=== PATIENT | male | born 1945 | race Caucasian/White ===

== ENCOUNTER 2018-03-01 19:03 | Inpatient (IN) | payer OTHER ==
[2018-03-01] MEDS ORDERED: ALTEPLASE 100 MG/100 ML VIAL IV ONE (19:06)
[2018-03-01] MEDS ORDERED: NS 1,000 ML IV ONE (19:07)
--- NOTE | 2018-03-01 19:07 | EDPHY ---
H & P Time Seen by Provider: 03/01/18 19:06 HPI/ROS: CHIEF COMPLAINT: Aphasia HISTORY OF PRESENT ILLNESS: Patient is a 72-year-old man with a history of hypertension who is brought to the emergency department by EMS. According to paramedics at 4:52 p.m. He was talking with his on the phone when he suddenly had trouble speaking. She called the ambulance. They found him to have difficulty speaking but no other deficits. They brought him here and we called a stroke alert. REVIEW OF SYSTEMS: Unable to obtain secondary to condition EXAM: GENERAL: Alert, awake, hypertensive HEAD: Atraumatic, normocephalic. EYES: Pupils equal round and reactive to light, extraocular movements intact, sclera anicteric, conjunctiva are normal. ENT: TMs normal, nares patent, oropharynx clear without exudates. Moist mucous membranes. NECK: Normal range of motion, supple without lymphadenopathy or JVD. LUNGS: Breath sounds clear to auscultation bilaterally and equal. No wheezes rales or rhonchi. HEART: Regular rate and rhythm without murmurs, rubs or gallops. ABDOMEN: Soft, nontender, normoactive bowel sounds. No guarding, no rebound. No masses appreciated. BACK: No CVA tenderness, no spinal tenderness, step-offs or deformities EXTREMITIES: Normal range of motion, no pitting or edema. No clubbing or cyanosis. NEUROLOGICAL: Cranial nerves II through XII grossly intact. No slurred speech but trouble with word finding, aphasic, trouble naming objects., normal gait. 5 /5 strength, normal movement in all extremities, normal sensation NIH stroke score of 3 for aphasia and 4 trouble stating month and location. PSYCH: Normal mood, normal affect. SKIN: Warm, dry, normal turgor, no visible rashes or lesions. Source: Patient, EMS Exam Limitations: No limitations - Medical/Surgical History Hx Asthma: No Hx Chronic Respiratory Disease: No Hx Diabetes: No Hx Cardiac Disease: No Hx Renal Disease: No Hx Cirrhosis: No Hx Alcoholism: No Hx HIV/AIDS: No Other PMH: Thoracic aneurysm and AAA both repaired surgically, hypertension - Family History Significant Family History: No pertinent family hx - Social History Alcohol Use: Sober Drug Use: None Constitutional: Initial Vital Signs Heart Rate 82 03/01/18 19:12 Respiratory Rate 17 03/01/18 19:12 Blood Pressure 131/103 H 03/01/18 19:12 O2 Sat (%) 92 03/01/18 19:12 O2 Delivery Mode Nasal Cannula O2 (L/minute) 6 Allergies/Adverse Reactions: No Known Allergies Allergy (Unverified 03/01/18 19:21) Home Medications: Medication Instructions Recorded Atorvastatin Calcium 80 mg PO DAILY 03/01/18 Calcium Carbonate [Oyster Shell 500 mg PO DAILY 03/01/18 Calcium 500 mg (*)] Cholecalciferol Vit D3 [Vitamin D3 1,000 units PO DAILY 03/01/18 (*)] Furosemide [Lasix 20 MG (*)] 20 mg PO DAILY 03/01/18 LORazepam [Ativan (*)] 0.5 mg PO DAILY PRN 03/01/18 Losartan Potassium [Cozaar 25 mg 25 mg PO DAILY 03/01/18 (*)] Metoprolol Succinate Xr [Toprol Xl 100 mg PO DAILY 03/01/18 100 mg (*)] amLODIPine BESYLATE [Norvasc 5 mg 5 mg PO DAILY 03/01/18 (*)] oxyCODONE IR [Oxycodone Ir (*)] 5 mg PO Q6 PRN 03/01/18 Medical Decision Making - Diagnostics EKG Interpretation: An EKG obtained and was read and documented in trace view. Please see trace view for full reading and report. Sinus rhythm, no acute ischemic changes Imaging Results: Imaging Impressions Chest X-Ray 03/01/18 19:08 Impression: 1. Previous cardiac surgery. 2. Minimal right pleural effusion versus pleural scarring. 3. Patchy right lower lobe opacity representing pneumonitis, atelectasis, or pleuroparenchymal scarring. 4. Consider chest, two views, when the patient's medical condition permits. Head CT 03/01/18 19:08 Impression: 1. Left parietal acute intraparenchymal hemorrhage, 5 x 3.2 cm, with surrounding edema. Differential diagnosis includes hypertensive hemorrhage versus hemorrhagic infarct versus hemorrhagic metastasis. 2. No midline shift or herniation. 3. Recommend follow-up MRI brain, without and with contrast enhancement, when the patient's medical condition permits. Findings and recommendations discussed with Emergency Department physician, Israel Reilly M.D., at 1912 hours, on March 01, 2018. Final report concurs with initial preliminary interpretation. ED Course/Re-evaluation: I spoke initially with Dr. Cleo Rubio from [facility]. We then canceled after the noncontrast CT was obtained. The patient thinks he is on a blood thinner but cannot tell me the name because he cannot talk. and daughter arrived and do not know. [facility] 7:30 p.m. I discussed the case with Dr. Marino Boland who recommends admission to the hospital service. He states that this is likely nonsurgical. He will come and consult. He agrees with nicardipine drip. We are still trying to track down blood thinners. [facility] said that [facility] do not think he is on blood thinners. Patient now tells me he does not think he is on blood thinners. We will try and contact the pharmacy. His coags are normal. 7:50 p.m. I discussed the case with Dr. Milligan who will admit to the ICU. He will consult Neurology tomorrow. We had a friend go to the patient's house and check his medication list. He is not on any blood thinners. Differential Diagnosis: Partial list of the Differential diagnosis considered include but were not limited to; intracranial hemorrhage, CVA and although unlikely based on the history and physical exam, I also considered seizure, trauma, infection. Critical Care Time: Critical care time spent by me, Dr. Reilly exclusive with this patient was 45 minutes, exclusive of the PA time exclusive of procedures. The organ system that was at risk was neurologic and I gave diagnosis, treatment consultation and admission to prevent worsening of the patient's condition - Data Points Laboratory Results: Laboratory Results 03/01/18 19:07 03/01/18 19:07 03/01/18 03/01/18 03/01/18 19:09 19:07 19:07 WBC RBC Hgb POC Hgb 19.7 gm/dL H gm/dL (13.7-17.5) Hct POC Hct 58 % H % (40-51) MCV MCH MCHC RDW Plt Count MPV Neut % (Auto) Lymph % (Auto) [place] % (Auto) Eos % (Auto) Baso % (Auto) Nucleat RBC Rel Count Absolute Neuts (auto) Absolute Lymphs (auto) Absolute Monos (auto) Absolute Eos (auto) Absolute Basos (auto) Absolute Nucleated RBC Immature Gran % Immature Gran # PT INR APTT POC Sodium 144 mEq/L mEq/L (135-145) Sodium Pending 142 mEq/L mEq/L (135-145) POC Potassium 4.1 mEq/L mEq/L (3.3-5.0) Potassium Pending 4.7 mEq/L mEq/L (3.5-5.2) POC Chloride 103 mEq/L mEq/L (97-110) Chloride Pending 101 mEq/L mEq/L (97-110) Carbon Dioxide Pending 27 mEq/l mEq/l (22-31) Anion Gap Pending 14 mEq/L mEq/L (8-16) POC BUN 15 mg/dL mg/dL (7-23) BUN Pending 15 mg/dL mg/dL (7-23) Creatinine Pending 1.0 mg/dL mg/dL (0.7-1.3) POC Creatinine 1.0 mg/dL mg/dL (0.7-1.3) Estimated GFR Pending > 60 Glucose Pending 103 mg/dL H mg/dL (70-100) POC Glucose 110 mg/dL H mg/dL (70-100) Calcium Pending 9.3 mg/dL mg/dL (8.5-10.4) Troponin I 0.111 ng/mL H ng/mL (0.000-0.034) 03/01/18 03/01/18 19:07 19:07 WBC 7.75 10^3/uL 10^3/uL (3.80-9.50) RBC 6.00 10^6/uL 10^6/uL (4.40-6.38) Hgb 18.0 g/dL H g/dL (13.7-17.5) POC Hgb Hct 54.9 % H % (40.0-51.0) POC Hct MCV 91.5 fL fL (81.5-99.8) MCH 30.0 pg pg (27.9-34.1) MCHC 32.8 g/dL g/dL (32.4-36.7) RDW 13.9 % % (11.5-15.2) Plt Count 163 10^3/uL 10^3/uL (150-400) MPV 10.2 fL fL (8.7-11.7) Neut % (Auto) 58.2 % % (39.3-74.2) Lymph % (Auto) 30.2 % % (15.0-45.0) [place] % (Auto) 10.6 % % (4.5-13.0) Eos % (Auto) 0.4 % L % (0.6-7.6) Baso % (Auto) 0.5 % % (0.3-1.7) Nucleat RBC Rel Count 0.0 % % (0.0-0.2) Absolute Neuts (auto) 4.51 10^3/uL 10^3/uL (1.70-6.50) Absolute Lymphs (auto) 2.34 10^3/uL 10^3/uL (1.00-3.00) Absolute Monos (auto) 0.82 10^3/uL H 10^3/uL (0.30-0.80) Absolute Eos (auto) 0.03 10^3/uL 10^3/uL (0.03-0.40) Absolute Basos (auto) 0.04 10^3/uL 10^3/uL (0.02-0.10) Absolute Nucleated RBC 0.00 10^3/uL 10^3/uL (0-0.01) Immature Gran % 0.1 % % (0.0-1.1) Immature Gran # 0.01 10^3/uL 10^3/uL (0.00-0.10) PT 13.9 SEC SEC (12.0-15.0) INR 1.05 (0.83-1.16) APTT 24.2 SEC SEC (23.0-38.0) POC Sodium Sodium POC Potassium Potassium POC Chloride Chloride Carbon Dioxide Anion Gap POC BUN BUN Creatinine POC Creatinine Estimated GFR Glucose POC Glucose Calcium Troponin I Medications Given: Acetaminophen (Tylenol) 650 mg PO Q4HRS PRN PRN Reason: Pain, Mild/Fever, Can Take PO Stop: 08/28/18 20:04 Last Admin: 03/01/18 22:01 Dose: 650 mg Nicardipine/Sodium Chloride (Cardene 0.1 Mg/Ml (Premix)) 200 mls @ 0 mls/hr IV CONT LOIDA; Titrate PRN Reason: Protocol Stop: 08/28/18 19:29 Last Admin: 03/01/18 19:36 Dose: 200 mls Lorazepam (Ativan Injection) 0.5 - 1 mg IVP Q4HRS PRN PRN Reason: Anxiety, Unable to Take PO Stop: 08/28/18 20:28 Last Admin: 03/01/18 22:01 Dose: 1 mg Miscellaneous (Liz-Ease 2 Gm) 2 tatiana TP Q1HR PRN PRN Reason: Dry Nose Stop: 08/28/18 21:00 Last Admin: 03/01/18 22:02 Dose: 2 tatiana Discontinued Medications Sodium Chloride (Ns) 1,000 mls @ 500 mls/hr IV EDNOW ONE PRN Reason: Protocol Stop: 03/01/18 21:06 Last Admin: 03/01/18 19:21 Dose: 1,000 mls Point of Care Test Results: 03/01/18 19:09 POC Sodium 144 POC Potassium 4.1 POC Chloride 103 POC BUN 15 POC Creatinine 1.0 POC Glucose 110 H Departure - Departure Disposition: [facility] Acute Clinical Impression: Intracranial hemorrhage Condition: Critical
[2018-03-01 19:18] LABS: PLATELET COUNT 163 10^3/uL (150-400)
--- NOTE | 2018-03-01 19:20 | CPEKG ---
Heart Rate: 79 RR Interval: 759 P-R Interval: 192 QRSD Interval: 84 QT Interval: 396 QTC Interval: 455 P [place]: 87 QRS [place]: 65 T Wave [place]: 7 EKG Severity - ABNORMAL ECG - EKG Impression: SINUS RHYTHM EKG Impression: LEFT ATRIAL ABNORMALITY Electronically Signed By: Israel Reilly 01-Mar-2018 19:40:45
[2018-03-01 19:28] LABS: INR 1.05 (0.83-1.16); PROTIME(PATIENT) 13.9 SEC (12.0-15.0)
[2018-03-01] MEDS ORDERED: niCARdipine/NACL 200 ML IV SCH ×2 (19:30→20:30)
[2018-03-01] MEDS ORDERED: ACETAMINOPHEN 650 MG SUPP PR PRN (20:05)
[2018-03-01] MEDS ORDERED: ONDANSETRON 4 MG/2 ML VIAL IVP PRN (20:05)
[2018-03-01] MEDS ORDERED: D50W 25 GM/50 ML SYR IVP PRN (20:08)
--- NOTE | 2018-03-01 20:56 | PDGENHP ---
History and Physical - Chief Complaint aphasia - History of Present Illness The Patient is a 72-year-old man who typically [facility] who has a history of hypertension, chronic resp failure on 6L O2 baseline, COPD, who is brought to the ED due to Aphasia.. According to paramedics at 4:52 p.m. He was talking with his on the phone when he suddenly had trouble speaking. She called the ambulance. They found him to have difficulty speaking but no other deficits. In the E.D. CT Brain is c/w Hemorrhagic stroke. Neuro Surgery has been consulted. He is seen in the ICU. BP is appropriate in the 150's systolic. He is on a Nicardipine drip. Aphasia persists but improving. He has difficulty following commands. He is able to move all 4 extremities. There was some concern that the pt was on blood thinners but upon further questioning he does not appear to take any. Coags are unremarkable. [facility]. He has a hx of COPD and chronic resp failure and he is currently at baseline. Per hx, he apparently was his normal self prior to this event. He has hx of HTN and is on a number of agents. Unclear what his BP runs usually. ROS: limited due to his cognition. He Denies pain, cp, sob, n/v. PMHx: HTN AAA Thoracic AA COPD chronic resp failure PSHx: AAA and throracic AAA repair SocHx: previous tobacco, no ETOH, lives with FmHx: NC CT Brain: left parietal intraparenchymal Hemorrhage involving the left parietal lobe measuring 5x3.2 cm. no midline shift EKG: with no acute ischemia Trop: 0.111 History Information - Allergies/Home Medication List Allergies/Adverse Reactions: No Known Allergies Allergy (Unverified 03/01/18 19:21) Home Medications: Atorvastatin Calcium 80 mg PO DAILY 03/01/18 [Last Taken 02/28/18] Calcium Carbonate [Oyster Shell Calcium 500 mg (*)] 500 mg PO DAILY 03/01/18 [ Last Taken 02/28/18] Cholecalciferol Vit D3 [Vitamin D3 (*)] 1,000 units PO DAILY 03/01/18 [Last Taken 02/28/18] Furosemide [Lasix 20 MG (*)] 20 mg PO DAILY 03/01/18 [Last Taken 02/28/18] LORazepam [Ativan (*)] 0.5 mg PO DAILY PRN 03/01/18 [Last Taken Unknown] Losartan Potassium [Cozaar 25 mg (*)] 25 mg PO DAILY 03/01/18 [Last Taken ] Metoprolol Succinate Xr [Toprol Xl 100 mg (*)] 100 mg PO DAILY 03/01/18 [Last Taken 02/28/18] amLODIPine BESYLATE [Norvasc 5 mg (*)] 5 mg PO DAILY 03/01/18 [Last Taken ] oxyCODONE IR [Oxycodone Ir (*)] 5 mg PO Q6 PRN 03/01/18 [Last Taken Unknown] I have personally reviewed and updated: medical history, social history - Social History Alcohol Use: Sober Drug Use: None Review of Systems Review of Systems: ROS: 10pt was reviewed & negative except for what was stated in HPI & below Physical Exam Physical Exam: Temp Pulse Resp BP Pulse Ox 36.9 C 85 19 129/76 H 93 03/01/18 19:27 03/01/18 20:35 03/01/18 20:35 03/01/18 20:35 03/01/18 20:35 O2 (L/minute) 6 Constitutional: no apparent distress, not in pain Eyes: PERRL, EOMI Ears, Nose, Mouth, Throat: moist mucous membranes, hearing normal Cardiovascular: regular rate and rhythym, No edema Respiratory: reduced air movement, expiratory wheeze Gastrointestinal: normoactive bowel sounds, soft, non-tender abdomen Skin: warm Neurologic: other (difficulty with following commands. limited exam: CNII-XII grossly intact. ), No AAOx3 Psychiatric: encephalopathic, No interacting appropriately Lymph, Heme, Immunologic: No petechiae Lab Data & Imaging Review 03/01/18 19:07 03/01/18 19:07 WBC 7.75 10^3/uL (3.80-9.50) 03/01/18 19:07 RBC 6.00 10^6/uL (4.40-6.38) 03/01/18 19:07 Hgb 18.0 g/dL (13.7-17.5) H 03/01/18 19:07 POC Hgb 19.7 gm/dL (13.7-17.5) H 03/01/18 19:09 Hct 54.9 % (40.0-51.0) H 03/01/18 19:07 POC Hct 58 % (40-51) H 03/01/18 19:09 MCV 91.5 fL (81.5-99.8) 03/01/18 19:07 MCH 30.0 pg (27.9-34.1) 03/01/18 19:07 MCHC 32.8 g/dL (32.4-36.7) 03/01/18 19:07 RDW 13.9 % (11.5-15.2) 03/01/18 19:07 Plt Count 163 10^3/uL (150-400) 03/01/18 19:07 MPV 10.2 fL (8.7-11.7) 03/01/18 19:07 Neut % (Auto) 58.2 % (39.3-74.2) 03/01/18 19:07 Lymph % (Auto) 30.2 % (15.0-45.0) 03/01/18 19:07 [place] % (Auto) 10.6 % (4.5-13.0) 03/01/18 19:07 Eos % (Auto) 0.4 % (0.6-7.6) L 03/01/18 19:07 Baso % (Auto) 0.5 % (0.3-1.7) 03/01/18 19:07 Nucleat RBC Rel Count 0.0 % (0.0-0.2) 03/01/18 19:07 Absolute Neuts (auto) 4.51 10^3/uL (1.70-6.50) 03/01/18 19:07 Absolute Lymphs (auto) 2.34 10^3/uL (1.00-3.00) 03/01/18 19:07 Absolute Monos (auto) 0.82 10^3/uL (0.30-0.80) H 03/01/18 19:07 Absolute Eos (auto) 0.03 10^3/uL (0.03-0.40) 03/01/18 19:07 Absolute Basos (auto) 0.04 10^3/uL (0.02-0.10) 03/01/18 19:07 Absolute Nucleated RBC 0.00 10^3/uL (0-0.01) 03/01/18 19:07 Immature Gran % 0.1 % (0.0-1.1) 03/01/18 19:07 Immature Gran # 0.01 10^3/uL (0.00-0.10) 03/01/18 19:07 PT 13.9 SEC (12.0-15.0) 03/01/18 19:07 INR 1.05 (0.83-1.16) 03/01/18 19:07 APTT 24.2 SEC (23.0-38.0) 03/01/18 19:07 POC Sodium 144 mEq/L (135-145) 03/01/18 19:09 Sodium 142 mEq/L (135-145) 03/01/18 19:07 POC Potassium 4.1 mEq/L (3.3-5.0) 03/01/18 19:09 Potassium 4.7 mEq/L (3.5-5.2) 03/01/18 19:07 POC Chloride 103 mEq/L (97-110) 03/01/18 19:09 Chloride 101 mEq/L (97-110) 03/01/18 19:07 Carbon Dioxide 27 mEq/l (22-31) 03/01/18 19:07 Anion Gap 14 mEq/L (8-16) 03/01/18 19:07 POC BUN 15 mg/dL (7-23) 03/01/18 19:09 BUN 15 mg/dL (7-23) 03/01/18 19:07 Creatinine 1.0 mg/dL (0.7-1.3) 03/01/18 19:07 POC Creatinine 1.0 mg/dL (0.7-1.3) 03/01/18 19:09 Estimated GFR > 60 03/01/18 19:07 Glucose 103 mg/dL (70-100) H 03/01/18 19:07 POC Glucose 110 mg/dL (70-100) H 03/01/18 19:09 Calcium 9.3 mg/dL (8.5-10.4) 03/01/18 19:07 Troponin I 0.111 ng/mL (0.000-0.034) H 03/01/18 19:07 Assessment & Plan Assessment: #Intracranial hemorrhage (Acute) #HTN #Indeterminate troponin, do not suspect ACS, no chest pain, EKG with no ischemia #Acute Encephalopathy due to stroke #Aphasia #HLD #COPD not in exacerbation #chronic resp failure at baseline 6 L Plan: ICU NS to see, conservative mgmt if possible repeat imaging per NS Seizure proph if needed per NS BP mgmt with Nicardipine Drip serial trops, telemetry, check TTE NPO, awaiting bedside swallow bronchodilators as needed hold home bp meds for now PT/OT/Speech total critical care time spent on this patient with hemorrhagic stroke, aphasia , and HTN is 70 minutes. D/W ER Physician, D/W ICU nurse
[2018-03-01] MEDS ORDERED: CANN-EASE 2 GM TUBE TP PRN (21:01)
[2018-03-01] MEDS ORDERED: IPRATROPIUM/ALBUTEROL 3 ML DEYVIAL IH PRN (21:02)
[2018-03-01] MEDS: LORazepam 2 MG/ML INJ IVP PRN (22:01)
[2018-03-01] MEDS: ACETAMINOPHEN 325 MG TAB PO PRN (22:01)
--- NOTE | 2018-03-01 22:23 | GCON ---
[f rep st] CONSULTATION DATE OF CONSULTATION: 03/01/2018 REFERRING PHYSICIAN: Israel Reilly MD REASON FOR CONSULT: Left temporoparietal hemorrhage. HISTORY OF PRESENT ILLNESS: The patient is a pleasant 72-year-old male who typically has all of his care at [place] [facility]. He does have a history of hypertension and COPD who is on 6 L of o xygen at baseline. He was brought to the emergency room this evening due to speech aphasia. Susan ng to the paramedics who brought him in, at approximately 4:50 this afternoon, he was talking with hi s on the phone and he suddenly had trouble speaking. She called the ambulance and they brought him into the emergency department. A CAT scan of his brain demonstrated an approximately 4 cm wide acute hemorrhage in the parenchyma of his brain in the left posterior temporoparietal region. His blood pressure was 150 systolic. Upon my arrival, he had been moved to the ICU where he was at the edge of the bed, wide awake and abl e to give some history but with difficulties with speech. His family was at the bedside and able to provide the rest of the history. PAST MEDICAL AND SURGICAL HISTORY: Per HPI, hypertension, triple aortic aneurysm with repair in the past. CODE STATUS: Full. ALLERGIES: No known drug allergies. SOCIAL HISTORY: Tobacco user. Denies alcohol or drug abuse. Lives with his , daughter at the [facility]. FAMILY HISTORY: No known history of hemorrhagic stroke in the family. REVIEW OF SYSTEMS: Ten points reviewed and otherwise negative. PHYSICAL EXAMINATION: VITAL SIGNS: The patient is afebrile with temperature of 98.6 degrees, his bl ood pressure is 129/76; it was 163/101 on arrival and he was placed on a nicardipine drip. Heart rat e is 85, respiratory rate is 19, saturating 93% on 6 L nasal cannula. NEUROLOGIC: The patient is aw adebayo and alert. He has significant mixed aphasia with the inability to understand all of commands giv en to him and a substantial expressive aphasia without the ability to communicate very well. He has normal cranial nerves. He is 5/5 in all extremities. He does not have a pronator drift. He has nor mal sensory exam to light touch and pinprick. He does not have a Morrell's, clonus, or Babinski sign . He has normal deep tendon reflexes. He does not have any cerebral findings. His gait is deferred , but he has good truncal posture and is sitting at the edge of the bed and trying to interact with kalina e on my examination. LABORATORY DATA: White blood cell count 7.7, hemoglobin 18, platelet count 163. INR 1.05, PTT 24.2. Sodium 142, potassium 4.7, BUN 15, creatinine 1.0, glucose 103. Troponin is 0.111 which is slightl y elevated. Review of imaging: I have reviewed the patient's noncontrast head CT and agree that he has a well-ci rcumscribed, approximately 3-4 cm intraparenchymal hemorrhage at the cortical surface in the left pos terior temporoparietal region. There is not a significant amount of vasogenic edema. There is no lo poornima mass effect or midline shift. IMPRESSION AND PLAN: The patient is a 72-year-old male, not on any anticoagulation, with hypertensio n and chronic obstructive pulmonary disease, who had an acute onset episode of aphasia this evening w martina talking on the telephone to his . He has a relatively good neurologic exam currently with t he exception of some mixed aphasia but he is wide awake and alert. The etiology of his hemorrhage at this point in time is unclear. It is possibly hypertensive versus some kind of amyloid process versus some kind of underlying mass lesion such as a tumor or a cerebrov ascular malformation. At this point in time, I recommend a CT angiogram of his brain at his next scan time which would be 4 -6 hours after his initial scan. We will also likely obtain an MRI brain with and without contrast a t some point in time. I recommend tight blood pressure control, less than 140 systolic with a nicard ipine drip, and frequent neurologic checks in the ICU. At this point in time, his bleed is not surgi poornima and surgery, in fact, could make him worse. It would disrupt some of his functional speech cente rs trying to evacuate the hemorrhage. I discussed my findings and recommendations personally with the patient and his family at the bedside . We are following closely along. Please call us with any questions. Thank you for this consult. /[id number]/MODL
--- NOTE | 2018-03-01 22:33 | PDMN ---
Medical Necessity Medical necessity: C/M review: est. > 2 MN LOS for eala and TX of acute intracranial hemorrhage, hypertension, hemorrhagic stroke, aphasia, acute encephalopathy due to stroke, indeterminate troponin requiring planned Neurosurgery consult, echocardiogram, ongoing NPO, blood pressure management with IV Nicardipine infusion, cardiac monitoring, serial troponins, bronchodilators as needed, pulse oximetry, supplemental O2, acute inpt PT/OT/ST in ICU, comorbid hyperlipidemia, COPD not in exacerbation, chronic respiratory failure at 6L/ min. O2 baseline history of hypertension, abdominal aortic aneurysm repair, thoracic aortic aneurysm repair per H/P.
[2018-03-02 05:04] LABS: PLATELET COUNT 129 10^3/uL (150-400)
[2018-03-02] MEDS ORDERED: PROTOCOL POTASSIUM 1 DOSE MISC PRN (06:13)
[2018-03-02] MEDS ORDERED: PROTOCOL CALCIUM 1 DOSE IV PRN (06:14)
[2018-03-02] MEDS ORDERED: PROTOCOL MAGNESIUM 1 DOSE IV PRN (06:14)
--- NOTE | 2018-03-02 07:22 | SOAPPROG ---
SOAP Progress Note Assessment/Plan: Assessment: 72 yo M with left parietal ICH Plan: neuro: stable and doing a bit better overall continued mixed receptive and expressive dysphasia will check CTA brain to evaluate for underlying vascular malformation, if negative, then we will also get MRI brain PT/OT/ST ok to transfer to Step Down cardine to keep SBP < 140 mmhg please call with neuro changes discussed with Dr Ford 03/02/18 07:19 Subjective: mild headache this am, no N/V. continued speech issues Objective: Vital Signs Temp Pulse Resp BP Pulse Ox 36.9 C 90 17 112/68 96 03/01/18 21:00 03/02/18 06:00 03/02/18 06:00 03/02/18 06:00 03/02/18 06:00 Laboratory Results 03/02/18 04:43 03/02/18 04:43 03/01/18 03/02/18 03/03/18 05:59 05:59 05:59 Intake Total 450 Output Total 0 Balance 450 PT 13.9 SEC (12.0-15.0) 03/01/18 19:07 INR 1.05 (0.83-1.16) 03/01/18 19:07 Awake, alert, +FC mixed receptive and expressive dysphasia PERRL, EOMI NEDA x4 + light touch ICD10 Worksheet Patient Problems: Problems Problem Status Onset Intracranial hemorrhage Acute
[2018-03-02] MEDS: INSULIN LISPRO 100 UNIT/ML SC SCH ×3 (07:31→20:09)
[2018-03-02] MEDS ORDERED: IOPAMIDOL (ISOVUE 370) 100 ML BTL IV ONE (08:34)
[2018-03-02] MEDS ORDERED: LORazepam 0.5 MG TAB PO PRN (09:31)
[2018-03-02] MEDS: oxyCODONE IR 5 MG TAB PO PRN ×2 (09:59→14:32)
[2018-03-02] MEDS: CALCIUM CARBONATE 500 MG TAB PO SCH (09:59)
[2018-03-02] MEDS: FUROSEMIDE 20 MG TAB PO SCH (09:59)
[2018-03-02] MEDS: CHOLECALCIFEROL VIT D3 1,000 UNITS TAB PO SCH (09:59)
[2018-03-02] MEDS: amLODIPine BESYLATE 5 MG TAB PO SCH (09:59)
[2018-03-02] MEDS: ATORVASTATIN CALCIUM 40 MG TAB PO SCH (10:00)
[2018-03-02] MEDS: METOPROLOL SUCCINATE XR 100 MG TAB PO SCH (10:02)
[2018-03-02] MEDS: LOSARTAN POTASSIUM 25 MG TAB PO SCH (10:04)
[2018-03-02] MEDS ORDERED: POTASSIUM CL 10 MEQ TAB PO ONE (11:36)
--- NOTE | 2018-03-02 11:50 | GCON ---
[f rep st] CONSULTATION DATE OF CONSULTATION: 03/02/2018 HISTORY OF PRESENT ILLNESS: This patient is a 72-year-old male normally followed [facility], who pres ented with abnormalities in speech to the emergency department late yesterday. His blood pressure wa s 131/[address] scan showed a left parietal 5 x 3 hemorrhagic stroke. He was seen by Neurosurgery and conservative management was recommended, and he was admitted to the intensive care unit [facility]. Symptoms are essentially unchanged today according to his daughter, but a repeat head CT also giovana wed no change in the hemorrhage. He also has a history of COPD and was unable to provide a lot of de tails today, but apparently uses oxygen at night only. [place] [address] and his oxygen requ irements may be higher than that. In any case, he says he is not using inhalers, but she thought that he was using something daily as well as a rescue type inhaler. Records from the [facility] are pending at th is time. REVIEW OF SYSTEMS: Otherwise negative. PAST MEDICAL HISTORY: 1. Hypertension. 2. Thoracic aortic aneurysm as well as abdominal aortic aneurysm. 3. Nocturnal oxygen and chronic obstructive pulmonary disease. PAST SURGICAL HISTORY: The aneurysm repairs. SOCIAL HISTORY: He has a history of smoking, but was unsure when he quit. No alcohol or IV drug use . FAMILY HISTORY: Noncontributory at this time. MEDICATIONS: DuoNeb, Norvasc, Lipitor, vitamin D, Lasix, Humalog, Ativan p.r.n., Cozaar, metoprolol, Zofran. PHYSICAL EXAMINATION: VITAL SIGNS: He was afebrile. His blood pressure was 147/84, heart rate 90, r espirations 17, oxygen saturation was about 85% on room air and 93% on 1 L/minute. GENERAL: He was a wake and alert, no apparent distress. Able to speak in full sentences without using accessory muscle s for breathing, though he was having difficulty with word finding. HEENT: Pupils equally round and reactive to light. Nonicteric and noninjected. Mucous membranes moist without erythema or exudate. NECK: Supple without adenopathy or jugular vein distention. LUNGS: Breath sounds were clear to aus cultate bilaterally though diminished without wheezes, rubs or rales. CARDIAC: Heart had a regular ra te and rhythm without obvious murmur. ABDOMEN: Soft, nontender, nondistended without hepatosplenome lucia. EXTREMITIES: No clubbing, cyanosis, or edema. NEUROLOGIC: Exam seemed to be nonfocal, other than the expressive aphasia. SKIN: Warm and dry without evidence of rash. OBJECTIVE DATA: CT scan as described above. His white count is 5.5, hematocrit 42, platelets of 129 , down from 163. Coags were otherwise normal. Basic metabolic panel showed a potassium of 3.2 but w as otherwise normal. Troponin was 0.11, but now 0.062 without intervention. ASSESSMENT AND PLAN: 1. Hemorrhagic stroke for uncertain reasons. Neurosurgery is following closely, keeping his blood p ressure under control and monitoring him to maintain that. He is going to a swallow study as well as PT, OT for further evaluation. 2. Chronic obstructive pulmonary disease. Though it is unclear about his medications, I am going to start him on Spiriva today as well as albuterol to use p.r.n. His oxygen requirement is quite low at this point. I suspected at [address], it is higher than that, but we will have to figure that out at the time of discharge. /[id number]/MODL
--- NOTE | 2018-03-02 12:24 | ECHO ---
[email or web address] [address] [address] Main: [phone] Fax: Transthoracic Echocardiogram Name: WALT MAYO MR#: [id number] Study Date: 03/02/2018 Study Time: 09:53 AM Date of : 1945 Age: 72 year(s) Height: 185.4 cm (73 in.) Weight: 81.65 kg (180 lb.) BSA: 2.06 m2 Gender: Male Examination: Echo Indication: Indeterminate Troponin, Aortic Valve Regurgitation, Intercranial Hemorrhage, COPD Image Quality: Poor Contrast: Requested by: Kj Moreira BP: 147 mmHg/84 mmHg Heart Rate: Rhythm: Normal sinus rhythm Indication: Indeterminate Troponin, Aortic Valve Regurgitation, Intercranial Hemorrhage, COPD Procedure Staff Steamer Blocker: Tristin Rucker RDCS Reading Physician: Quirino Tsang MD Requesting Provider: Conclusions: Normal size left ventricle. No LV hypertrophy. Normal global systolic LV function. EF is 88 %. No regional wall motion abnormality. Diastolic dysfunction is present. . Normal RV function. The left atrium is normal in size. The right atrium is normal in size. Aortic valve prosthesis is normal. There is no aortic valve regurgitation. The AV mean PG is 5 mmHg with a AV Vmax of 1.4 m/s. No pericardial effusion. Measurements: Chambers Valvular Assessment AV/MV Valvular Assessment TV/PV Normal Normal Normal Name Value Range Name Value Range Name Value Range Ao Leah (MM): 3.0 cm (2.2 cm-3.7 AV Vmax: 1.45 m/s (1 m/s-1.7 PV Vmax: 1.26 m/s (0.6 m/s-0.9 cm) m/s) m/s) IVSd (2D): 0.8 cm (0.6 cm-1.1 AV maxP mmHg ( - ) PV PGmax: 6 mmHg ( - ) cm) AV meanP mmHg ( - ) LVDd (2D): 5.0 cm (4.2 cm-5.9 MARIELA (VTI): 2.2 cm ( - ) cm) MV E Vmax: 0.52 m/s ( - ) LVDs (2D): 2.1 cm (2.1 cm-4 MV A Vmax: 0.70 m/s ( - ) cm) MV E/A: 0.74 ( - ) LVPWd (2D): 0.9 cm (0.6 cm-1 cm) LVOTd 2.2 cm 2.2 cm mm LVEF (2D): 88 (>=54 %) Patient: WALT MAYO Study Date: 03/02/2018 Page 1 of 2 09:53 AM Continued Measurements: Chambers Valvular Assessment AV/MV Name Value Name Value LADs Lon.5 cm MV E' Septal: 0.05 m/s LA Area: 20.8 cm2 MV E/E' Septal: 11.60 LA Volume: 64 ml MV E/E' Lateral: 9.80 LA Volume Index: 31.1 ml/m2 Findings: Left Ventricle: Normal size left ventricle. No LV hypertrophy. Normal global systolic LV function. EF is 88 %. No regional wall motion abnormality. Diastolic dysfunction is present. . Right Ventricle: Normal size right ventricle. Normal RV function. Left Atrium: The left atrium is normal in size. Right Atrium: The right atrium is normal in size. Mitral Valve: Mild mitral valve leaflet calcification is present. There is no significant mitral valve regurgitation. Aortic Valve: Aortic valve prosthesis is normal. There is no aortic valve regurgitation. The aortic valve is a bioprosthesis. The AV mean PG is 5 mmHg with a AV Vmax of 1.4 m/s. Tricuspid Valve: The tricuspid valve is normal in appearance and function. Pulmonic Valve: The pulmonic valve is normal in appearance and function. Aorta: The aorta is normal. Pericardium: No pericardial effusion. (No Signature Object) Patient: WALT MAYO Study Date: 03/02/2018 Page 2 of 2 09:53 AM [id number]
--- NOTE | 2018-03-02 13:08 | HOSPPROG ---
Hospitalist Progress Note Assessment/Plan: 72-year-old male new to my care on 03/02/2018 presenting with word-finding difficulties found to have: #Intracranial hemorrhage (Acute) -bleed appears stable on imaging. CT angio of the head was reviewed and did not show a source of bleeding. -continue PT/OT #HTN -continue to closely monitor blood pressure and treat with IV Cardene for a goal of systolic less than 140 #Indeterminate troponin, do not suspect ACS, no chest pain, EKG with no ischemia -recommend outpatient stress test #Acute Encephalopathy due to stroke(resolving) #Aphasia #HLD #COPD not in exacerbation #chronic resp failure at baseline 6 L Disposition: Continue care in the step-down unit until blood pressure is stabilized and cleared by Neurosurgery for transfer to the neuro unit Subjective: Denies any new numbness or weakness. Speech is improving. Denies chest pain. Objective: Vital Signs Temp Pulse Resp BP Pulse Ox 36.9 C 71 22 H 134/91 H 93 03/01/18 21:00 03/02/18 12:00 03/02/18 12:00 03/02/18 12:00 03/02/18 12:00 Laboratory Results 03/02/18 04:43 03/02/18 04:43 03/01/18 03/02/18 03/03/18 05:59 05:59 05:59 Intake Total 450 Output Total 0 200 Balance 450 -200 PT 13.9 SEC (12.0-15.0) 03/01/18 19:07 INR 1.05 (0.83-1.16) 03/01/18 19:07 - Physical Exam Constitutional: no apparent distress, appears nourished, not in pain Cardiovascular: regular rate and rhythym, no murmur, rub, or gallop Respiratory: no respiratory distress, no rales or rhonchi, clear to auscultation Gastrointestinal: normoactive bowel sounds, soft, non-tender abdomen, no palpable masses Neurologic: AAOx3, sensation intact bilaterally ICD10 Worksheet Patient Problems: Problems Problem Status Onset Intracranial hemorrhage Acute
[2018-03-02] MEDS: LORazepam 2 MG/ML INJ IVP PRN (13:19)
[2018-03-02] MEDS ORDERED: GADOBUTROL 10 ML VIAL IVP ONE (13:39)
--- NOTE | 2018-03-02 15:31 | ASMTCMCOM ---
CM Note CM Note Notes: Pt has been admitted with a L parietal intracranial hemorrhage. PT/OT recommending Inpt Rehab at this time. Need order for rehab eval. Pt lives with his in [place] [facility] CM will follow for d/c needs. Date Signed: 03/02/2018 03:30 PM Electronically Signed By:ABIGAIL Murphy
[2018-03-02] MEDS ORDERED: NS 1,000 ML IV ONE (19:00)
[2018-03-02] MEDS: ACETAMINOPHEN 325 MG TAB PO PRN (19:52)
[2018-03-03] MEDS: ACETAMINOPHEN 325 MG TAB PO PRN ×2 (05:36→19:12)
--- NOTE | 2018-03-03 07:38 | SOAPPROG ---
SOAP Progress Note Assessment/Plan: Assessment: 72 yo M with left parietal ICH Plan: neuro: stable and doing a bit better overall continued mixed receptive and expressive dysphasia CTA brain without evidence of vascular malformation, MRI brain without tumor but likely amyloid angiopathy consider Neurology consult for further stroke evaluation workup PT/OT/ST cardine to keep SBP < 160 mmhg please call with neuro changes discussed with Dr Ford 03/02/18 07:19 03/03/18 07:35 Subjective: continued headaches, no N/V. Objective: Vital Signs Temp Pulse Resp BP Pulse Ox 37.0 C 69 15 141/76 H 96 03/03/18 00:00 03/03/18 04:00 03/03/18 04:00 03/03/18 04:00 03/03/18 04:00 Laboratory Results 03/02/18 04:43 03/03/18 05:30 03/02/18 03/03/18 03/04/18 05:59 05:59 05:59 Intake Total 450 800 Output Total 0 900 Balance 450 -100 PT 13.9 SEC (12.0-15.0) 03/01/18 19:07 INR 1.05 (0.83-1.16) 03/01/18 19:07 awake, alert PERRL, no facial droop continued mixed dysphasia NEDA x 4 + light touch ICD10 Worksheet Patient Problems: Problems Problem Status Onset Intracranial hemorrhage Acute
[2018-03-03] MEDS: oxyCODONE IR 5 MG TAB PO PRN (07:41)
[2018-03-03] MEDS: amLODIPine BESYLATE 5 MG TAB PO SCH (07:41)
[2018-03-03] MEDS: LOSARTAN POTASSIUM 25 MG TAB PO SCH (07:42)
[2018-03-03] MEDS: ATORVASTATIN CALCIUM 40 MG TAB PO SCH (08:48)
[2018-03-03] MEDS: METOPROLOL SUCCINATE XR 100 MG TAB PO SCH (08:49)
[2018-03-03] MEDS: CALCIUM CARBONATE 500 MG TAB PO SCH (08:49)
[2018-03-03] MEDS: FUROSEMIDE 20 MG TAB PO SCH (08:49)
[2018-03-03] MEDS: CHOLECALCIFEROL VIT D3 1,000 UNITS TAB PO SCH (08:49)
--- NOTE | 2018-03-03 09:27 | PDINTPN ---
[place] Tower Loader Progress Note Assessment/Plan: Assessment/plan: 72 M with history of HTN and thoracic/abdominal aneurysm repair admitted with altered mental status and expressive aphasia found to have 5x3 cm left parietal intracranial hemorrhage. Also with history of COPD using O2 mostly at night and [facility] * ICH- conservative management per neurosurgery and appears more awake/alert today. Still with word finding issues and answers yes to most questions (teeth itch). PT/OT * COPD- stable on duoneb prn. Needs some clarification but might be using Spiriva daily with prn albuterol. * Hypoxia- minimal today on 3 lpm. Start IS, OOB, etc. Subjective: feels better, but still with word finding issues Objective: Vital Signs Temp Pulse Resp BP Pulse Ox 36.6 C 74 14 145/91 H 94 03/03/18 07:47 03/03/18 07:47 03/03/18 07:47 03/03/18 07:47 03/03/18 07:47 Laboratory Results 03/02/18 04:43 03/03/18 05:30 03/02/18 03/03/18 03/04/18 05:59 05:59 05:59 Intake Total 450 800 Output Total 0 900 Balance 450 -100 PT 13.9 SEC (12.0-15.0) 03/01/18 19:07 INR 1.05 (0.83-1.16) 03/01/18 19:07 Physical Exam - Physical Exam General Appearance: alert, no apparent distress EENT: PERRL/EOMI Neck: supple Respiratory: lungs clear, normal breath sounds, No respiratory distress, No accessory muscle use Cardiac/Chest: regular rate, rhythm, No edema Abdomen: non-tender, soft, No distended Skin: normal color, warm/dry, No cyanosis Lymphatic: no adenopathy Extremities: No pedal edema Neuro/Psych: alert, normal mood/affect, cognition abnormalities ICD10 Worksheet Patient Problems: Problems Problem Status Onset Intracranial hemorrhage Acute
[2018-03-03] MEDS ORDERED: ALBUTEROL 3 ML DEYVIAL IH PRN (10:43)
[2018-03-03] MEDS ORDERED: TIOTROPIUM INHALER 18 MCG/DOSE 5 DOSE/MDI IH SCH (10:45)
--- NOTE | 2018-03-03 12:35 | HOSPPROG ---
Hospitalist Progress Note Assessment/Plan: 72-year-old male new to my care on 03/02/2018 presenting with word-finding difficulties found to have: #Intracranial hemorrhage (Acute) -bleed appears stable on imaging. CT angio of the head was reviewed and did not show a source of bleeding. -continue PT/OT -rehab consult -neuro consult -transfer to neuro unit #HTN -controlled on po meds -continue to closely monitor blood pressure and treat with IV Cardene prn for a goal of systolic less than 140 #Indeterminate troponin, do not suspect ACS, no chest pain, EKG with no ischemia -recommend outpatient stress test #Acute Encephalopathy due to stroke(resolving) #Aphasia #HLD #COPD not in exacerbation #chronic resp failure at baseline 6 L Disposition: transfer to neuro unit. await rehab placement Subjective: doing better today. denies new deficits Objective: Vital Signs Temp Pulse Resp BP Pulse Ox 36.6 C 67 16 135/63 H 96 03/03/18 11:59 03/03/18 11:59 03/03/18 11:59 03/03/18 11:59 03/03/18 11:59 Laboratory Results 03/02/18 04:43 03/03/18 05:30 03/02/18 03/03/18 03/04/18 05:59 05:59 05:59 Intake Total 450 800 Output Total 0 900 Balance 450 -100 PT 13.9 SEC (12.0-15.0) 03/01/18 19:07 INR 1.05 (0.83-1.16) 03/01/18 19:07 - Physical Exam Constitutional: no apparent distress, appears nourished, not in pain Cardiovascular: regular rate and rhythym, no murmur, rub, or gallop Respiratory: no respiratory distress, no rales or rhonchi, clear to auscultation Gastrointestinal: normoactive bowel sounds, soft, non-tender abdomen, no palpable masses Neurologic: AAOx3, CN II-XII Intact, No facial droop ICD10 Worksheet Patient Problems: Problems Problem Status Onset Intracranial hemorrhage Acute
[2018-03-03] MEDS ORDERED: ALBUTEROL 60 PUFFS/8 GM MDI IH PRN (15:50)
--- NOTE | 2018-03-03 16:50 | BCON ---
[f rep st] BEHAVIORAL HEALTH CONSULTATION DATE OF CONSULTATION: 03/03/2018 REFERRING PHYSICIAN: Kj Moreira MD CHIEF COMPLAINT: Intracranial hemorrhage. HISTORY: The patient is a very pleasant 72-year-old gentleman, who is a . He came into the hospital on March 01, 2018, in the evening, due to a chief complaint of aphasia. He has a history of hypertension. He also has a history of aortic aneurysm repair surgically in [place]. He was not on any antiplatelets or anticoagulants upon admission. He was found to have a large parietal intraparenchymal hemorrhage, acute, 5 x 3.2 cm, with surrounding edema in the ED. He was seen by Neurosurgery, admitted to the ICU. He has significant aphasia, primarily receptive, and has been stable. Based on the overall anatomy and clinical picture, it was recommended to treat him conservatively without neurosurgical intervention. He had a CT of the head which did not show an underlying vascular malformation. Brain MRI was done yesterday which did show previous old microhemorrhages on susceptibility- weighted imaging. This confirms the presence of underlying cerebral amyloid angiopathy and explains the patient's lobar hemorrhage. REVIEW OF SYSTEMS: Could not be done based on the patient's language dysfunction. For past medical history, allergies, home medications, social history, family history, see Dr. Moreira's H and P dated 03/01/2018. PHYSICAL EXAMINATION: VITAL SIGNS: Blood pressure 135/63, temperature 36.6, respirations 16, heart rate 69. GENERAL: No acute distress. He is awake and alert. NEUROLOGIC: On language exam, his comprehension is 0/5. Expression is abnormal as well, although when he does speak sentences, they are grammatically correct. He cannot repeat 0/5. Significant aphasia, receptive greater than expressive, mixed. Cranial nerve exam: Full extraocular movements. Face is fairly symmetric. On motor exam, he does have [id number] right-sided weakness in the right leg and right arm. IMPRESSION/PLAN: 1. Cerebral amyloid angiopathy. 2. Large right parietal lobar hemorrhage. Overall, the patient's clinical history and neuroimaging are consistent with underlying cerebral amyloid angiopathy and an acute large left hemisphere lobar hemorrhage due to his underlying cerebral amyloid angiopathy. He also has a history of hypertension. I had a long discussion with his today regarding the underlying disease and pathophysiology. Going forward, oral anticoagulants are absolutely contraindicated in this disease. Antiplatelets, such as Aggrenox , Plavix, or aspirin etc., are relatively contraindicated. Certainly, for the time being while he has acute blood products intracranially, he should be on no antiplatelets. Even after the blood completely resolves, I would recommend staying off all antithrombotics, including antiplatelets, unless there was an absolute indication for anti-platelet therapy. For example , if the patient had an acute coronary syndrome needing a stent that required anti-platelet therapy, the question could be revisited. In this situation, each case can be considered on an individual basis. We also discussed that control of blood pressure will decrease the risk of recurrent intracranial hemorrhage. They understood and appreciated the counseling. In any case, at this point in the course of the illness, all antithrombotics should be discontinued indefinitely. They understand and were counseled at length. He will be discharged to inpatient rehabilitation and will need extensive speech language therapy going forward, both as an inpatient and outpatient. I offered to follow him as an outpatient as well. They will look into their insurance and [facility] coverage for the ideal practical approach, based on where they live and their coverage options. I will be happy to help in any way. I gave them my name and contact information. No further recommendations now. We will sign off and follow up as needed with this very pleasant patient. Please do not hesitate to call with any questions or changes in neurologic status with the patient. Seventy total minutes floor time reviewing inpatient records, neuro imaging, reviewing imaging with the family, counseling, and coordination of care. /[id number]/MODL MTDD
[2018-03-03] MEDS: BUDESONIDE/FORMOTEROL 80/4.5 60 PUFFS/MDI IH SCH (19:54)
[2018-03-04] MEDS: ACETAMINOPHEN 325 MG TAB PO PRN ×2 (06:08→13:55)
--- NOTE | 2018-03-04 06:58 | NEUSURGPN ---
Assessment/Plan: Assessment: 72 yo M with left parietal ICH Plan: -neuro: stable and doing a bit better overall per RN -continued mixed receptive and expressive dysphasia -CTA brain without evidence of vascular malformation, MRI brain without tumor but likely amyloid angiopathy -Neurology consulted for further stroke evaluation workup-seen by Dr Denson yesterday-appreciate his care and input -PT/OT/ST-CPM -cardene to keep SBP < 160 mmhg -please call with neuro changes -discussed with Dr Ford-no neurosurgery recommendations given-will likely s/o if ok with Dr Ford -call with any questions or concerns Subjective: Awake and alert. NAD. Pt with continued speech issues. No neck/chest/abd or gu complaints. No f/c/n/v/d. Objective: awake, alert PERRLA, no facial droop continued mixed dysphasia NEDA x 4 + light touch Neuro Check Frequency: per routine Urinary Catheter in Place: No - Physician Discussed Patient with Dr.: Ford Neurosurgery Physical Exam - Vitals, I&O, Labs I and O 03/03/18 03/04/18 03/05/18 05:59 05:59 05:59 Intake Total 800 1300 Output Total 900 850 Balance -100 450 Intake: Oral (ml) 800 1250 IV Intake (ml) 50 Output: Urine (ml) 900 850 Toilet 400 Urinal 900 450 Other: Number of Voids Incontinence 1 Number of Stools Urinal 1 Vital Signs Temp Pulse Resp BP Pulse Ox 36.7 C 66 15 153/87 H 95 03/04/18 04:00 03/04/18 04:00 03/04/18 04:00 03/04/18 04:36 03/04/18 04:00 Laboratory Results 03/02/18 04:43 03/04/18 04:30 ICD10 Worksheet Patient Problems: Problems Problem Status Onset Intracranial hemorrhage Acute
[2018-03-04] MEDS: oxyCODONE IR 5 MG TAB PO PRN (07:46)
[2018-03-04] MEDS: METOPROLOL SUCCINATE XR 100 MG TAB PO SCH (07:49)
[2018-03-04] MEDS: CHOLECALCIFEROL VIT D3 1,000 UNITS TAB PO SCH (07:49)
[2018-03-04] MEDS: CALCIUM CARBONATE 500 MG TAB PO SCH (07:49)
[2018-03-04] MEDS: FUROSEMIDE 20 MG TAB PO SCH (07:50)
[2018-03-04] MEDS: amLODIPine BESYLATE 5 MG TAB PO SCH (07:50)
[2018-03-04] MEDS: LOSARTAN POTASSIUM 25 MG TAB PO SCH (07:50)
[2018-03-04] MEDS: ATORVASTATIN CALCIUM 40 MG TAB PO SCH (07:50)
[2018-03-04] MEDS ORDERED: MAGNESIUM SULF 1 GM/DEXTROSE 100 ML IV ONE (07:51)
[2018-03-04] MEDS ORDERED: amLODIPine BESYLATE 5 MG TAB PO SCH (08:23)
[2018-03-04] MEDS: BUDESONIDE/FORMOTEROL 80/4.5 60 PUFFS/MDI IH SCH (09:32)
[2018-03-04 11:38] VITALS: BP 119/65
--- NOTE | 2018-03-04 11:46 | ASMTCMCOM ---
CM Note CM Note Notes: reports that patient has Medicare A & B and [facility] and a supplemental ins benefit. She got caught with a large bill the last time he was hospitalized and wants to make sure of what her end payments maight be before he is admitted to [facility] In-pt Rehab. Date Signed: 03/04/2018 11:45 AM Electronically Signed By:Radha Campos LCSW
--- NOTE | 2018-03-04 12:15 | HOSPPROG ---
Hospitalist Progress Note Assessment/Plan: 72-year-old male new to my care on 03/02/2018 presenting with word-finding difficulties found to have: #Intracranial hemorrhage (Acute) -bleed appears stable on imaging. CT angio of the head was reviewed and did not show a source of bleeding. -continue PT/OT -rehab consult -neuro consult reviewed. No ASA/NSAIDS #HTN -Norvasc increased to 10mg on 03/05/18 -continue to closely monitor blood pressure and treat with IV Cardene prn for a goal of systolic less than 140 #Indeterminate troponin, do not suspect ACS, no chest pain, EKG with no ischemia -recommend outpatient stress test #Acute Encephalopathy due to stroke(resolving) #Aphasia #HLD #COPD not in exacerbation #chronic resp failure at baseline 6 L Disposition: transfer to neuro unit. await rehab placement Subjective: denies new numbness/weakness. Continues to have problems with expressive and receptive aphasia Objective: Vital Signs Temp Pulse Resp BP Pulse Ox 36.8 C 71 14 119/65 96 03/04/18 11:36 03/04/18 11:36 03/04/18 11:36 03/04/18 11:36 03/04/18 11:36 Laboratory Results 03/02/18 04:43 03/04/18 04:30 03/03/18 03/04/18 03/05/18 05:59 05:59 05:59 Intake Total 800 1300 480 Output Total 900 850 300 Balance -100 450 180 PT 13.9 SEC (12.0-15.0) 03/01/18 19:07 INR 1.05 (0.83-1.16) 03/01/18 19:07 - Physical Exam Constitutional: no apparent distress, appears nourished, not in pain Respiratory: no respiratory distress, no rales or rhonchi, clear to auscultation Gastrointestinal: normoactive bowel sounds, soft, non-tender abdomen, no palpable masses Neurologic: AAOx3, CN II-XII Intact, No facial droop ICD10 Worksheet Patient Problems: Problems Problem Status Onset Intracranial hemorrhage Acute
--- NOTE | 2018-03-04 15:04 | PDIAF ---
- Diagnosis Diagnosis: ICH Code Status: Full Code - Medication Management Discharge Medications: Medications to Continue on Transfer Atorvastatin Calcium 80 mg PO DAILY 03/01/18 [Last Taken 02/28/18] Calcium Carbonate [Oyster Shell Calcium 500 mg (*)] 500 mg PO DAILY 03/01/18 [ Last Taken 02/28/18] Cholecalciferol Vit D3 [Vitamin D3 (*)] 1,000 units PO DAILY 03/01/18 [Last Taken 02/28/18] Furosemide [Lasix 20 MG (*)] 20 mg PO DAILY 03/01/18 [Last Taken 02/28/18] LORazepam [Ativan (*)] 0.5 mg PO DAILY PRN 03/01/18 [Last Taken Unknown] Losartan Potassium [Cozaar 25 mg (*)] 25 mg PO DAILY 03/01/18 [Last Taken ] Metoprolol Succinate Xr [Toprol Xl 100 mg (*)] 100 mg PO DAILY 03/01/18 [Last Taken 02/28/18] amLODIPine BESYLATE [Norvasc 5 mg (*)] 5 mg PO DAILY 03/01/18 [Last Taken ] oxyCODONE IR [Oxycodone Ir (*)] 5 mg PO Q6 PRN 03/01/18 [Last Taken Unknown] Albuterol [Proventil Inhaler HFA (*)] 1 - 2 puffs IH Q4H PRN 03/03/18 [Last Taken Unknown] Budesonide/Formoterol Fumarate [Symbicort 80-4.5 Mcg Inhaler] 2 puffs IH BID [Last Taken Unknown] amLODIPine BESYLATE [Norvasc 10 mg (*)] 10 mg PO DAILY #30 tab 03/04/18 [Last Taken Unknown] Additional Medication Instructions: no aspirin Discharge Medications: Refer to the Discharge Home Medication list for PRN reason. - Orders Services needed: Registered Nurse, Physical Therapy, Occupational Therapy Diet Recommendation: no restrictions on diet Diet Texture: Regular Texture Diet Additional Instructions: f/u with pcp 1 week after discharge - Follow Up Care Current Providers and Referrals: Patient,NotPresent [Unknown] - As per Instructions
--- NOTE | 2018-03-04 15:07 | ASDISCHSUM ---
Discharge Information Plan Status:Inpatient Rehab Medically Cleared to Leave:03/04/2018 Discharge Date:03/04/2018 CM D/C Disposition:[facility] ADT D/C Disposition: Projected Discharge Date:03/04/2018 04:00 PM Transportation at D/C:Wheelchair Van Discharge Delay Reason: Follow-Up Date:03/04/2018 04:00 PM Discharge Slot: Final Diagnosis:Intercranial hemorrhage Placement Information Referral Type:Rehabilitation Hospital Referral ID:[id number] Provider Name:[facility] Address 1:[address] [facility] Phone Number: Address 2: Fax Number: City:[place] Selection Factors: State:[place] Patient Contact Information Contact Name:JAE Relationship: Address:[address] Work Phone: [facility] Phone: [facility]/Zip Code:[place] [address] Email: Financial Information Financial Class:Medicare Primary Plan Desc:MEDICARE INPATIENT Primary Plan Number:[id number] Secondary Plan Desc: Secondary Plan Number: Assessment Information [facility] CM Progress Note CM Note CM Note Notes: Pt has been admitted with a L parietal intracranial hemorrhage. PT/OT recommending Inpt Rehab at this time. Need order for rehab eval. Pt lives with his in [place] and is followed at the [place]. CM will follow for d/c needs. Date Signed: 03/02/2018 03:30 PM Electronically Signed By:ABIGAIL Murphy [facility] CM Progress Note CM Justino CM Note Notes: reports that patient has Medicare A & B and VA and a supplemental ins benefit. She got caught with a large bill the last time he was hospitalized and wants to make sure of what her end payments marisol be before he is admitted to [facility] In-pt Rehab. Date Signed: 03/04/2018 11:45 AM Electronically Signed By:Radha Campos LCSW Case Management Discharge Plan Note Case Management Discharge Discharge Order Complete? Answers: Yes Patient to Obtain Answers: Other Notes: [facility] In-pt Rehab Medications Transportation Arranged Answers: Family/Friends Transport will Pick (Date 03/04/2018 03:30 PM & Time) Faxed Final Orders Answers: Yes Notes: [facility] In-pt Rehab Family Notified Answers: Yes Notes: Family to transport Discharge Comments Notes: Patient has been discharged to In-pt Rehab. Family to transport with our [employer] tank. Date Signed: 03/04/2018 03:02 PM Electronically Signed By:Radha Campos LCSW Intervention Information Intervention Type:*IM-Signed Date of Service:03/04/2018 02:48 PM Patient Type:Inpatient Staff Member:Gissel Stuart Hours: Discipline: Severity: Comment:
--- NOTE | 2018-03-04 16:40 | GDS ---
[f rep st] DISCHARGE SUMMARY DISCHARGE DIAGNOSES: 1. 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 2. Hypertension. 3. Chronic respiratory failure due to chronic obstructive pulmonary disease. 4. Expressive aphasia. 5. Hyperlipidemia. CONSULTANTS: 1. Alexander Ford MD, neurosurgery. 2. Sharad Denson MD, neurology. 3. Eulogio Winchester MD, pulmonary critical care. HOSPITAL COURSE AND STAY BY PROBLEM: Left parietal intracranial hemorrhage: The patient was admitte d to the intensive care unit where his blood pressure was closely monitored and treated with IV nicar dipine and oral medications. Repeat head imaging done after initial presentation has been stable. Jordan naqvi has had a CTA of his head as well as a brain MRI, which seemed to be most consistent with bleeding from an amyloid angiopathy. The patient's condition has continued to improve throughout his hospital stay. On day of discharge, he plans to transfer to rehab to work on his persistent aphasia. PHYSICAL EXAM: VITAL SIGNS: On day of discharge, blood pressure 119/65, pulse of 71 respiratory rat e 14, O2 saturation 96% on 5 L. Temperature afebrile. GENERAL: No acute distress. HEART: S1, S2. NEUROLOGIC: Cranial nerves 2-12 grossly intact. No facial droop. The patient does have an expres sive aphasia. DIAGNOSTICS DONE THIS HOSPITAL STAY: Head CT done 03/01/2018, refer to report. CTA of the head done 03/02/2018, refer to report. Brain MRI done 03/02/2018, refer to report. DISCHARGE MEDICATIONS: Please refer to discharge medication reconciliation in [facility] for full deta ils. Below is a preliminary list. New medications on hospital discharge: Amlodipine 10 mg daily. Home medications that were stopped: Amlodipine 5 mg daily. All other home medications were continued as usual home dosages. DISCHARGE INSTRUCTIONS: The patient will be transferred to rehab where he should remain off aspirin or any NSAIDs due to risk for further intercranial bleeding. I would also recommend that he have an outpatient stress test given that his troponin was in the indeterminate range upon initial presentati on. Greater than 30 minutes was spent on the discharge of this patient. /[id number]/MODL
--- NOTE | 2018-03-07 10:51 | PQFORM ---
PHYSICIAN QUERY FORM Needs Your Response This query form is being sent to you to assure this patient record is coded properly. Please respond to the question below: MANAGER JAVA QUESTION: Dr Hoff Encephalopathy was documented throughout the progress notes but not mentioned in the Discharge Summary. Did this patient have Encephalopathy __x_ Yes ___ No ___ Other (Please specify ) ___ Unable to determine Thank You Billie QUINTERO Bow Maker INSTRUCTIONS FOR RESPONSE: Answer question by clicking on the "Edit Document" button. Move cursor to area below the stars. When complete, hit "Save." Click on the "Sign" button, then click "Sign" again. Type in your PIN and hit "Enter." MTDD
== END 2018-03-04 15:48 | DRG 64 ==
LOC: EDUNIT# → OBSVTOIN 20:05 → F2N 20:21
PROVIDERS: ADMIT Family Medicine; ATTEND Family Medicine
DX: I62.9 Nontraumatic intracranial hemorrhage, unspecified (principal); E85.4 Organ-limited amyloidosis; I68.0 Cerebral amyloid angiopathy; G93.40 Encephalopathy, unspecified; J44.9 Chronic obstructive pulmonary disease, unspecified; J96.11 Chronic respiratory failure with hypoxia; R47.01 Aphasia; I10 Essential (primary) hypertension; E78.5 Hyperlipidemia, unspecified; Z99.81 Dependence on supplemental oxygen; Z87.891 Personal history of nicotine dependence
CPT/HCPCS: 82947-QW; 92507-GN; 92523-GN; 96365; 97112-GP; 97116-GP; 97162-GP; 97166-GO; 97530-GO; 97535-GO; A9585; G8978-GP-CJ; G8979-GP-CI; G8987-GO-CJ; G8988-GO-CI; G9159-GN-CK; G9160-GN-CJ; J2060; J2997; J3475; Q9967

== ENCOUNTER 2018-03-04 15:45 | Inpatient (IN) | payer OTHER ==
[2018-03-04] MEDS ORDERED: ALBUTEROL 60 PUFFS/8 GM MDI IH PRN (16:43)
[2018-03-04] MEDS ORDERED: BISACODYL 10 MG SUPP PR PRN (17:10)
--- NOTE | 2018-03-04 18:41 | GHP ---
[f rep st] HISTORY AND PHYSICAL POST ADMISSION PHYSICIAN EVALUATION AND REHABILITATION TREATMENT PLAN DATE OF ADMISSION: 03/04/2018 DATE OF EVALUATION: 03/04/2018. TIME OF EVALUATION: 1655. REFERRING FACILITY: [facility]. REFERRING PHYSICIAN: Dr. Cartagena IMPAIRMENT GROUP: 2.1. DATE OF ONSET: 03/01/2018. CONSULTING PHYSICIAN: He was seen in consultation by the Neurosurgery Service, Dr. Ford, and by Neurology, Dr. Denson. REHABILITATION DIAGNOSIS: Receptive and expressive aphasia following left parietal intraparenchymal hemorrhage. ETIOLOGIC DIAGNOSIS: Nontraumatic brain dysfunction. HISTORY OF PRESENT ILLNESS: This patient was admitted to [facility] on 03/01/2018, with aphasia. He had a head CT which showed an acute hemorrhage in the left posterior temporoparietal region, with no vascular malformation on CT angiogram. Brain MRI was consistent with an underlying cerebral amyloid angiopathy. He was admitted to the intensive care unit. He had IV diltiazem for blood pressure management, and he was ultimately stabilized and ready for discharge. During his stay, amlodipine was increased from 5 mg to 10 mg on 03/04/2018. He had a troponin tested which was indeterminate, but he had no chest pain, and his EKG did not show any ischemia. Recommendation was for an outpatient stress test. He had headaches preceding his symptoms of aphasia, and he has been treated with p.r.n. oxycodone as well as acetaminophen. OTHER STUDIES AND LABORATORIES DURING HIS STAY: CBC on 03/02 was overall within normal limits, but for a slightly low platelet count of 129. Coagulation studies revealed normal PT and INR. Serum chemistry showed a low potassium on 03/02, of 3.2. Subsequently, it normalized at 4.4. He had a low calcium, but a normal ionized calcium. Albumin was low at 2.4. Cholesterol showed very good control with a total cholesterol of 99 and an LDL of 59. HDL was also low at 29. Imaging with chest x-ray showed hyper expanded lungs and mild cardiomegaly. An echocardiogram was done which showed normal global systolic left ventricular function. Ejection fraction was 88%. He had diastolic dysfunction. Aortic valve prosthesis was normal with no regurgitation. PRECAUTIONS: He is a fall risk. ACTIVE COMORBIDITIES: He has no active tier 1, tier 2, or tier 3 comorbidities. PAST MEDICAL HISTORY: 1. COPD: Hospital note reports baseline oxygen requirement of 6 L. His reports that he uses oxygen mostly at night. 2. Hypertension. 3. Aortic dissection. 4. Thyroid cancer. PAST SURGICAL HISTORY: He has had abdominal and thoracic aortic surgery. He had a repeat surgery to repair the aortic valve. He has had a thyroidectomy. reports he has had eye surgery. PREHOSPITAL MEDS: 1. Atorvastatin 80 mg p.o. daily. 2. Calcium carbonate 500 mg p.o. daily. 3. Cholecalciferol 1000 units p.o. daily. 4. Furosemide 20 mg p.o. daily. 5. Lorazepam 0.5 mg p.o. daily p.r.n. 6. Losartan 25 mg p.o. daily. 7. Metoprolol XR 100 mg p.o. daily. 8. Amlodipine 5 mg p.o. daily. 9. Oxycodone 5 mg p.o. q.6 hours p.r.n. ADMISSION MEDICATIONS: 1. Atorvastatin 80 mg p.o. daily. 2. Calcium carbonate 500 mg p.o. daily. 3. Cholecalciferol 1000 units p.o. daily. 4. Furosemide 20 mg p.o. daily. 5. Lorazepam 0.5 mg p.o. daily p.r.n. 6. Losartan 25 mg p.o. daily. 7. Metoprolol XR 100 mg p.o. daily. 8. Amlodipine 10 mg p.o. daily. 9. Oxycodone 5 mg p.o. q.6 hours p.r.n. 10. Albuterol 1-2 puffs q.4 hours p.r.n. 11. Budesonide/formoterol 80/4.5 two puffs b.i.d. ALLERGIES: There are no known drug allergies. PSYCHOSOCIAL HISTORY: He is a . 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 He is retired and lives by himself in a house with stairs to enter and multiple levels inside in [facility]. His does not live with him, but is involved with his care. He has a local daughter who is also involved in his care. He has a large smoking history, but quit several years ago. He is not an alcohol user. FAMILY HISTORY: Noncontributory. REVIEW OF SYSTEMS: Limited due to difficulty with communication. He is not in pain. He does not have a cough or dyspnea. Per chart review, he had a bowel movement yesterday. reports he has a decreased appetite. He has had headaches. He snores. Otherwise to the extent that it could be obtained, a 10- point review of systems is negative. PHYSICAL EXAM: VITAL SIGNS: Blood pressure is 110/73. Heart rate is 72. Respiratory rate is 18. Oxygen saturation is 90% on 4 L. Temperature is 36.5 degrees centigrade. His weight most recently in the hospital was 81.6 kg for a body mass index of 23.7. GENERAL: This is a well-nourished, well-developed man , sitting in a wheelchair, wearing a hospital gown, cooperative, and in no acute distress. HEENT: Extraocular movements are overall intact, though he has difficulty following direction fot specific testing. Pupils are equal, round, and reactive to light. He has mild ptosis of the right upper eyelid. Mucous membranes are moist. Dentition is in good condition. He has a crowded airway, Mallampati class 3-4. NECK: Supple. HEART: There is a regular rate and rhythm with no murmurs, rubs, or gallops. LUNGS: He has reduced air movement. There are no crackles, wheezes, or rhonchi. He is not tachypneic. ABDOMEN: Soft, nontender, nondistended with normoactive bowel sounds and no hepatosplenomegaly. EXTREMITIES: There is no cyanosis, clubbing, or edema. Radial and dorsalis pedis pulses are 2+ bilaterally. NEUROLOGIC: He is alert. Orientation could not be tested. Cranial nerves 2-12 are grossly intact. There is no focal weakness. Sensory exam could not be completed. He has severe receptive aphasia, though he seems to have understanding of gesture. He is unable to read and could not follow the written direction "close your eyes." Rapid alternating movements appear to be intact, though again he does not fully follow direction. Deep tendon reflexes are 2+ bilaterally at the biceps, patellar, and Achilles tendons, and plantar reflex is downgoing bilaterally. SKIN: He has ecchymoses covering much of his right volar forearm. CURRENT LEVEL OF FUNCTION PER THE PREADMISSION SCREEN: Regarding diet, feeding , and swallowing, he was on a regular diet with thin liquids. For grooming, he required standby assist with voice cues. Dressing of the lower body was accomplished with contact guard assist and voice cues. He was continent of bowel and bladder. Bed mobility required standby assist with voice cues. Transfers required contact guard with voice cues using a front-wheeled walker. Seated balance required standby assist and standing balance required standby assist with voice cues, and he had a wide base of support. Endurance was fair. He ambulated 100 feet with contact guard, voice cues, and 4 L of oxygen. Regarding communication, he was noted to have vknibyjh-kx-ldjalw expressive aphasia and severe receptive aphasia. There are no changes from the preadmission screen on today's exam. IMPRESSION: This is a 72-year-old man who suffered a hemorrhagic stroke to the left posterior parietal and temporal regions of his brain resulting in severe receptive and hqwdocpq-tq-wdxaqd expressive aphasia. He also has some deficits to mobility and activities of daily living requiring standby assist to contact guard assist with these activities. He has comorbid hypertension, dyslipidemia , and chronic obstructive pulmonary disease. He is appropriate for inpatient rehabilitation where he will benefit from Physical Therapy and Occupational Therapy to optimize mobility and activities of daily living and from Speech and Language Pathology regarding communication. His goals of care are to complete a rehabilitation stay and then go home with his family and supportive services. For a safe discharge, it is expected that he will achieve independence with eating, grooming, and bed mobility, modified independence for transfers, dressing, and ambulation with the least restrictive device on both level and unlevel surfaces. He will demonstrate the use of appropriate strategies to compensate for cognitive and communication impairment. He may require close supervision still at discharge. He likely will require assistance for meals, shopping, and household management. He will have therapy with Physical Therapy, Occupational Therapy, and Speech and Language Pathology for 60 minutes per day per discipline on 5-7 days of the week. His expected duration of stay is 10-14 days. It is expected that upon discharge he will continue to benefit from home health services including Nursing, Speech and Language Pathology, and Physical Therapy. In addition, he will benefit from a stroke support group. PLAN: 1. Severe receptive and moderate to severe expressive aphasia due to left parietal and temporal intracranial hemorrhage. Speech and Language Pathology to optimize his communication. 2. Decreased mobility, and assistance required for activities of daily living. PT and OT to optimize mobility and activities of daily living to the independent or modified independent level. 3. Hypertension. Amlodipine has been increased. Continue losartan and metoprolol. Monitor blood pressures. Will check orthostatic blood pressure and pulse to ensure that he does not have a significant drop and to assist in blood pressure management. 4. Chronic obstructive pulmonary disease. Continue budesonide and albuterol as well as oxygen. Incentive spirometry to ensure that he has full lung expansion. 5. Dyslipidemia. Continue atorvastatin. 6. Diastolic dysfunction. Continue furosemide. Will check a basic metabolic profile in the morning to ensure that his renal function and electrolytes remain normal. 7. Thrombocytopenia. Will check a CBC in the morning. 8. History of thyroid cancer. TSH has not been checked during his hospitalization. Will check a TSH in the morning. 9. Headache. Continue acetaminophen, as well as oxycodone on a p.r.n. basis. PROGNOSIS: It is expected that he will have some improvement as the brain clears blood. He also is likely to have improved communication through strategies learned with Speech Language Pathology. As this was a large lobar hemorrhage, he is at risk of a recurrence and NSAIDs or antithrombotic/ anticoagulant medications are contraindicated unless there is a very strong indication, for instance, a DVT or need for coronary stenting. PROPHYLAXIS: Anticoagulants are contraindicated. He will have sequential compression devices at night. FOLLOWUP: Acute hospital discharge instructions recommend follow up with primary care provider within a week of his discharge from rehabilitation. It is unclear whether Neurosurgery needs to see him again and whether there should be repeat brain imaging. This will be clarified with Neurosurgery. It is recommended that he have a stress test on an outpatient basis due to his indeterminate rise in troponin during his hospitalization. It is likely that his followup will be through the [facility]. /[id number]/MODL MTDD
[2018-03-04] MEDS ORDERED: BUDESONIDE/FORMOTEROL 80/4.5 60 PUFFS/MDI IH SCH (21:00)
[2018-03-05] MEDS: BUDESONIDE/FORMOTEROL 80/4.5 60 PUFFS/MDI IH SCH ×3 (00:36→20:56)
[2018-03-05] MEDS: oxyCODONE IR 5 MG TAB PO PRN ×2 (00:40→19:39)
[2018-03-05] MEDS: ACETAMINOPHEN 325 MG TAB PO PRN ×2 (00:51→18:21)
[2018-03-05 08:14] LABS: PLATELET COUNT 121 10^3/uL (150-400)
[2018-03-05] MEDS: ATORVASTATIN CALCIUM 40 MG TAB PO SCH (08:15)
[2018-03-05] MEDS: FUROSEMIDE 20 MG TAB PO SCH (08:16)
[2018-03-05] MEDS: LOSARTAN POTASSIUM 25 MG TAB PO SCH (08:16)
[2018-03-05] MEDS: CALCIUM CARBONATE 500 MG TAB PO SCH (08:16)
[2018-03-05] MEDS: METOPROLOL SUCCINATE XR 100 MG TAB PO SCH (08:16)
[2018-03-05] MEDS: CHOLECALCIFEROL VIT D3 1,000 UNITS TAB PO SCH (08:16)
--- NOTE | 2018-03-05 12:31 | SOAPPROG ---
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 * Speech and Language Pathology to optimize his communication. * Decreased mobility, and assistance required for activities of daily living. * Right visual field cut per OT. * Continue PT and OT to optimize mobility and activities of daily living to the independent or modified independent level. * Hypertension. * Amlodipine has been increased. Continue losartan and metoprolol. * Orthostatic hypotension. Monitor for symptoms. Monitor blood pressures. * Chronic obstructive pulmonary disease. Continue budesonide and albuterol as well as oxygen. Incentive spirometry to ensure that he has full lung expansion. * Dyslipidemia. Continue atorvastatin. * Diastolic dysfunction. Continue furosemide. Normal renal function and electrolytes on BMP 03/05/2018. * Thrombocytopenia. Resolved on CBC 4 03/01/2018. * History of thyroid cancer. Awaiting TSH result. * Headache. Continue acetaminophen, as well as oxycodone on a p.r.n. basis. PROGNOSIS: It is expected that he will have some improvement as the brain clears blood. He also is likely to have improved communication through strategies learned with Speech Language Pathology. As this was a large lobar hemorrhage, he is at risk of a recurrence and NSAIDs or antithrombotic/ anticoagulant medications are contraindicated unless there is a very strong indication, for instance, a DVT or need for coronary stenting. PROPHYLAXIS: Anticoagulants are contraindicated. He will have sequential compression devices at night. FOLLOWUP: Acute hospital discharge instructions recommend follow up with primary care provider within a week of his discharge from rehabilitation. It is unclear whether Neurosurgery needs to see him again and whether there should be repeat brain imaging. This will be clarified with Neurosurgery. It is recommended that he have a stress test on an outpatient basis due to his indeterminate rise in troponin during his hospitalization. It is likely that his followup will be through the [facility]. 03/05/18 14:35 Subjective: No complaints. Inconsistent responses to questions. Seems to deny pain cough or dyspnea. Objective: Vital Signs Temp Pulse Resp BP Pulse Ox 36.4 C 60 16 144/92 H 95 03/05/18 06:45 03/05/18 08:16 03/05/18 06:45 03/05/18 08:17 03/05/18 06:45 Laboratory Results 03/05/18 06:00 03/05/18 06:00 03/04/18 03/05/18 03/06/18 05:59 05:59 05:59 Intake Total 500 120 Output Total 500 Balance 0 120 Physical Exam - Physical Exam General Appearance: WD/WN, alert, no apparent distress Respiratory: normal breath sounds, prolonged expiration, No crackles, No rhonchi , No wheezing Cardiac/Chest: regular rate, rhythm, No edema, No diastolic murmur, No systolic murmur Skin: normal color, warm/dry Neuro/Psych: alert, normal mood/affect, aphasia ICD10 Worksheet Patient Problems: Problems Problem Status Onset Intracranial hemorrhage Acute
--- NOTE | 2018-03-05 12:33 | PDOREHIP ---
Admission [facility] - Admission - 3 Day Assessment Period Admission Date/Day 1: 03/04/18 Day 2: 03/05/18 Day 3: 03/06/18 - Active Diagnoses Comorbidities and Co-existing Conditions at Admission: 78441. None of the Above - Skin Conditions Unhealed Pressure Ulcer (1 or more/Stage 1 or >)-Admission: 0. No
[2018-03-05] MEDS ORDERED: IPRATROPIUM/ALBUTEROL 3 ML DEYVIAL IH PRN (16:07)
[2018-03-06] MEDS: ATORVASTATIN CALCIUM 40 MG TAB PO SCH (08:36)
[2018-03-06] MEDS: CHOLECALCIFEROL VIT D3 1,000 UNITS TAB PO SCH (08:37)
[2018-03-06] MEDS: CALCIUM CARBONATE 500 MG TAB PO SCH (08:37)
[2018-03-06] MEDS: FUROSEMIDE 20 MG TAB PO SCH (08:37)
[2018-03-06] MEDS: BUDESONIDE/FORMOTEROL 80/4.5 60 PUFFS/MDI IH SCH ×2 (08:37→20:51)
[2018-03-06] MEDS: METOPROLOL SUCCINATE XR 100 MG TAB PO SCH (08:38)
[2018-03-06] MEDS: LOSARTAN POTASSIUM 25 MG TAB PO SCH (08:38)
--- NOTE | 2018-03-06 09:53 | SOAPPROG ---
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 * Severe expressive and moderate to severe receptive aphasia. * Continue Speech and Language Pathology to optimize his communication. * Decreased mobility, and assistance required for activities of daily living. * Initial functional independence measure 71 on 03/06/2008. Ambulates with no device needing contact guard assist. Climbed and descended 1 flight of stairs with contact guard assist. He has right proximal muscle weakness. He was dyspneic in the shower down to 85% oxygen saturation on 4 L while seated. Dressing is done with setup and standby assist. Right visual field cut versus hemineglect per OT. * Not self-managing O2. * Continue PT and OT to optimize mobility and activities of daily living to the independent or modified independent level. * Hypertension. * Amlodipine has been increased. Continue losartan and metoprolol. * Orthostatic hypotension. Monitor for symptoms. Monitor blood pressures. * Chronic obstructive pulmonary disease. Continue budesonide and albuterol as well as oxygen. Incentive spirometry to ensure that he has full lung expansion. * Inhalers discussed with daughter, 03/06/2018. He was previously on tiotropium. Will start tiotropium today, 03/06/2018. * Daughter also reports that goal oxygenation is greater than 88% due to concern regarding CO2 retention and decreased respiratory drive with higher oxygen saturation. * Subclinical hypothyroidism with mild elevation of TSH and slightly low free T3. Free T4 is normal. * History of thyroid cancer and surgery. TSH may be abnormal due to acute illness. * Advise repeat TSH in 4 - 6 weeks. * Dyslipidemia. Continue atorvastatin. * Diastolic dysfunction. Continue furosemide. Normal renal function and electrolytes on BMP 03/05/2018. * Thrombocytopenia. Resolved on CBC 4 03/01/2018. * Headache. Continue acetaminophen, as well as oxycodone on a p.r.n. basis. PROGNOSIS: It is expected that he will have some improvement as the brain clears blood. He also is likely to have improved communication through strategies learned with Speech Language Pathology. As this was a large lobar hemorrhage, he is at risk of a recurrence and NSAIDs or antithrombotic/ anticoagulant medications are contraindicated unless there is a very strong indication, for instance, a DVT or need for coronary stenting. PROPHYLAXIS: Anticoagulants are contraindicated. He will have sequential compression devices at night. FOLLOWUP: Acute hospital discharge instructions recommend follow up with primary care provider within a week of his discharge from rehabilitation. It is unclear whether Neurosurgery needs to see him again and whether there should be repeat brain imaging. This will be clarified with Neurosurgery. It is recommended that he have a stress test on an outpatient basis due to his indeterminate rise in troponin during his hospitalization. It is likely that his [facility] will [facility] through the [facility]. Attended staffing, 15 min. D/W case management, nursing, supervisor metal cans, PT, OT, STRAP FOLDING MACHINE OPERATOR. May not meed much more PT as he has good mobility. OT still needs to address vision and perception, and O2 management. Has large STRAP FOLDING MACHINE OPERATOR need. Unclear re return to home in [facility] (3 SHADE then 12 steps to main level) versus daughter or in [place]. Plan for discharge 03/13/2018. Will continue home or outpatient STRAP FOLDING MACHINE OPERATOR. 03/06/18 12:27 Subjective: No complaints. Denies cough or dyspnea, fevers or chills. Objective: Vital Signs Temp Pulse Resp BP Pulse Ox 37.0 C 76 16 119/77 88 L 03/06/18 06:52 03/06/18 09:25 03/06/18 06:52 03/06/18 09:25 03/06/18 09:25 Laboratory Results 03/05/18 06:00 03/05/18 06:00 03/05/18 03/06/18 03/07/18 05:59 05:59 05:59 Intake Total 500 826 200 Output Total 500 800 450 Balance 0 26 -250 - Time Spent With Patient Time Spent With Patient: Greater than 35 min floor time today, including more than 50% of time in coordination of care during staffing meeting, and counseling patient and daughter. Physical Exam - Physical Exam General Appearance: WD/WN, alert, no apparent distress Respiratory: normal breath sounds, prolonged expiration, No crackles, No rhonchi , No wheezing Cardiac/Chest: regular rate, rhythm, No JVD, No diastolic murmur, No systolic murmur Skin: normal color, warm/dry Neuro/Psych: alert, normal mood/affect, speech abnormalities (Responding appropriately to commands regarding physical exam. Has appropriate social responses to questions.) ICD10 Worksheet Patient Problems: Problems Problem Status Onset Intracranial hemorrhage Acute
[2018-03-06] MEDS: TIOTROPIUM INHALER 18 MCG/DOSE 5 DOSE/MDI IH SCH (12:50)
[2018-03-07] MEDS: ATORVASTATIN CALCIUM 40 MG TAB PO SCH (08:52)
[2018-03-07] MEDS: FUROSEMIDE 20 MG TAB PO SCH (08:53)
[2018-03-07] MEDS: CHOLECALCIFEROL VIT D3 1,000 UNITS TAB PO SCH (08:53)
[2018-03-07] MEDS: CALCIUM CARBONATE 500 MG TAB PO SCH (08:53)
[2018-03-07] MEDS: METOPROLOL SUCCINATE XR 100 MG TAB PO SCH (08:54)
[2018-03-07] MEDS: LOSARTAN POTASSIUM 25 MG TAB PO SCH (08:55)
[2018-03-07] MEDS: BUDESONIDE/FORMOTEROL 80/4.5 60 PUFFS/MDI IH SCH ×2 (09:24→20:18)
[2018-03-07] MEDS: TIOTROPIUM INHALER 18 MCG/DOSE 5 DOSE/MDI IH SCH (09:25)
--- NOTE | 2018-03-07 13:33 | SOAPPROG ---
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 * Improving. * Continue Speech and Language Pathology to optimize his communication. * Decreased mobility, and assistance required for activities of daily living. * Initial functional independence measure 71 on 03/06/2008. Ambulates with no device needing contact guard assist. Climbed and descended 1 flight of stairs with contact guard assist. He has right proximal muscle weakness. He was dyspneic in the shower down to 85% oxygen saturation on 4 L while seated. Dressing is done with setup and standby assist. Right visual field cut versus hemineglect per OT. * Not self-managing O2. * Continue PT and OT to optimize mobility and activities of daily living to the independent or modified independent level. * Hypertension. * Amlodipine has been increased. Continue losartan and metoprolol. Adequate control. * Orthostatic hypotension. Monitor for symptoms. Monitor blood pressures. * Chronic obstructive pulmonary disease. Continue budesonide and albuterol as well as oxygen. Incentive spirometry to ensure that he has full lung expansion. * Inhalers discussed with daughter, 03/06/2018. He was previously on tiotropium. Started tiotropium 03/06/2018. * Daughter also reports that goal oxygenation is greater than 88% due to concern regarding CO2 retention and decreased respiratory drive with higher oxygen saturation. * Subclinical hypothyroidism with mild elevation of TSH and slightly low free T3. Free T4 is normal. * History of thyroid cancer and surgery. TSH may be abnormal due to acute illness. * Advise repeat TSH in 4 - 6 weeks. * Dyslipidemia. Continue atorvastatin. * Diastolic dysfunction. Continue furosemide. Normal renal function and electrolytes on BMP 03/05/2018. * Thrombocytopenia. Resolved on CBC 4 03/01/2018. * Headache. Continue acetaminophen, as well as oxycodone on a p.r.n. basis. PROGNOSIS: It is expected that he will have some improvement as the brain clears blood. He also is likely to have improved communication through strategies learned with Speech Language Pathology. As this was a large lobar hemorrhage, he is at risk of a recurrence and NSAIDs or antithrombotic/ anticoagulant medications are contraindicated unless there is a very strong indication, for instance, a DVT or need for coronary stenting. PROPHYLAXIS: Anticoagulants are contraindicated. He will have sequential compression devices at night. FOLLOWUP: Acute hospital discharge instructions recommend follow up with primary care provider within a week of his discharge from rehabilitation. It is unclear whether Neurosurgery needs to see him again and whether there should be repeat brain imaging. This will be clarified with Neurosurgery. It is recommended that he have a stress test on an outpatient basis due to his indeterminate rise in troponin during his hospitalization. It is likely that his followup will be through the [facility]. DISPOSITION: May not meed much more PT as he has good mobility. OT still needs to address vision and perception, and O2 management. Has large AERIAL SURVEY TECHNICIAN need. Unclear re return to home in [facility] (3 SHADE then 12 steps to main level) versus daughter or in [place]. Plan for discharge 03/13/2018. Will continue home or outpatient AERIAL SURVEY TECHNICIAN. 03/07/18 13:33 Subjective: No complaints. Slept well. No cough or dyspnea, no fevers or chills. Objective: Vital Signs Temp Pulse Resp BP Pulse Ox 36.7 C 86 16 128/86 H 93 03/07/18 06:23 03/07/18 08:54 03/07/18 06:23 03/07/18 08:55 03/07/18 06:23 Laboratory Results 03/05/18 06:00 03/05/18 06:00 03/06/18 03/07/18 03/08/18 05:59 05:59 05:59 Intake Total 826 1280 665 Output Total 800 450 250 Balance 26 830 415 Physical Exam - Physical Exam General Appearance: WD/WN, alert, no apparent distress Respiratory: normal breath sounds, wheezing (Expiratory left lower lobe), prolonged expiration, No crackles, No rhonchi Cardiac/Chest: regular rate, rhythm, No edema, No diastolic murmur, No systolic murmur Skin: normal color, warm/dry Neuro/Psych: alert, normal mood/affect, speech abnormalities (Expressive aphasia. Appears to have good comprehension.), other (Doing word matching exercise on paper, 100% accuracy.) ICD10 Worksheet Patient Problems: Problems Problem Status Onset Intracranial hemorrhage Acute
--- NOTE | 2018-03-07 15:57 | SOAPPROG ---
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 Long and short term memory have been affected by the hemorrhage. Has severe mental confusion. Stress levels are high. Urination/bowels good. Sleep is good. Objective: Vital Signs Temp Pulse Resp BP Pulse Ox 36.7 C 86 16 128/86 H 93 03/07/18 06:23 03/07/18 08:54 03/07/18 06:23 03/07/18 08:55 03/07/18 06:23 Laboratory Results 03/05/18 06:00 03/05/18 06:00 03/06/18 03/07/18 03/08/18 05:59 05:59 05:59 Intake Total 826 1280 665 Output Total 800 450 250 Balance 26 830 415 Skin color slight marc/dull. Eyes glossy/cloudy Mental confusion Memory loss - Time Spent With Patient Time Spent With Patient: Acupuncture needle retention time one hour. During treatment patient fall asleep. ICD10 Worksheet Patient Problems: Problems Problem Status Onset Intracranial hemorrhage Acute
[2018-03-07] MEDS: LORazepam 0.5 MG TAB PO PRN (20:27)
[2018-03-08] MEDS: METOPROLOL SUCCINATE XR 100 MG TAB PO SCH (08:39)
[2018-03-08] MEDS: ATORVASTATIN CALCIUM 40 MG TAB PO SCH (08:40)
[2018-03-08] MEDS: LOSARTAN POTASSIUM 25 MG TAB PO SCH (08:40)
[2018-03-08] MEDS: SENNOSIDES 1 TAB PO PRN ×2 (08:40→21:17)
[2018-03-08] MEDS: FUROSEMIDE 20 MG TAB PO SCH (08:40)
[2018-03-08] MEDS: CHOLECALCIFEROL VIT D3 1,000 UNITS TAB PO SCH (08:41)
[2018-03-08] MEDS: CALCIUM CARBONATE 500 MG TAB PO SCH (08:41)
[2018-03-08] MEDS: TIOTROPIUM INHALER 18 MCG/DOSE 5 DOSE/MDI IH SCH (09:18)
[2018-03-08] MEDS: BUDESONIDE/FORMOTEROL 80/4.5 60 PUFFS/MDI IH SCH ×2 (09:18→21:24)
--- NOTE | 2018-03-08 12:07 | SOAPPROG ---
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 * Improving. * Continue Speech and Language Pathology to optimize his communication. * Decreased mobility, and assistance required for activities of daily living. * Initial functional independence measure 71 on 03/06/2008. Ambulates with no device needing contact guard assist. Climbed and descended 1 flight of stairs with contact guard assist. He has right proximal muscle weakness. He was dyspneic in the shower down to 85% oxygen saturation on 4 L while seated. Dressing is done with setup and standby assist. Right visual field cut versus hemineglect per OT. * Not self-managing O2. * Continue PT and OT to optimize mobility and activities of daily living to the independent or modified independent level. * Hypertension. * Amlodipine has been increased. Continue losartan and metoprolol. Adequate control. * Orthostatic hypotension. Monitor for symptoms. Monitor blood pressures. * Chronic obstructive pulmonary disease. Continue budesonide and albuterol as well as oxygen. Incentive spirometry to ensure that he has full lung expansion. * Inhalers discussed with daughter, 03/06/2018. He was previously on tiotropium. Started tiotropium 03/06/2018. * Daughter also reports that goal oxygenation is greater than 88% due to concern regarding CO2 retention and decreased respiratory drive with higher oxygen saturation. * Adjustment disorder with depressed mood vs. depression. Initiate citalopram 5 mg QD starting 03/08/2018. Plan to increase to 10 mg QD if tolerated X 1 - 2 days, and then to 20 mg QD. Counseling per STRATEGIC INSIGHTS LEAD. * Subclinical hypothyroidism with mild elevation of TSH and slightly low free T3. Free T4 is normal. * History of thyroid cancer and surgery. TSH may be abnormal due to acute illness. * Advise repeat TSH in 4 - 6 weeks. * Dyslipidemia. Continue atorvastatin. * Diastolic dysfunction. Continue furosemide. Normal renal function and electrolytes on BMP 03/05/2018. * Thrombocytopenia. Resolved on CBC 03/01/2018. * Headache. Continue acetaminophen, as well as oxycodone on a p.r.n. basis. PROGNOSIS: It is expected that he will have some improvement as the brain clears blood. He also is likely to have improved communication through strategies learned with Speech Language Pathology. As this was a large lobar hemorrhage, he is at risk of a recurrence and NSAIDs or antithrombotic/ anticoagulant medications are contraindicated unless there is a very strong indication, for instance, a DVT or need for coronary stenting. PROPHYLAXIS: Anticoagulants are contraindicated. He will have sequential compression devices at night. FOLLOWUP: Acute hospital discharge instructions recommend follow up with primary care provider within a week of his discharge from rehabilitation. It is unclear whether Neurosurgery needs to see him again and whether there should be repeat brain imaging. This will be clarified with Neurosurgery. It is recommended that he have a stress test on an outpatient basis due to his indeterminate rise in troponin during his hospitalization. It is likely that his followup will be through the [facility]. DISPOSITION: May not meed much more PT as he has good mobility. OT still needs to address vision and perception, and O2 management. Has large TIRE ASSEMBLER need. Unclear re return to home in [facility] (3 SHADE then 12 steps to main level) versus daughter or in [place]. Plan for discharge 03/15/2018. Will continue home or outpatient TIRE ASSEMBLER. 03/08/18 12:04 Subjective: No complaints this morning. Nursing and therapy staff have noted emotional lability and tearfulness. This was discussed with the patient and he agrees with initiating an antidepressant. Objective: Vital Signs Temp Pulse Resp BP Pulse Ox 36.6 C 77 19 133/76 H 91 L 03/08/18 05:09 03/08/18 08:39 03/08/18 05:09 03/08/18 08:40 03/08/18 05:09 Laboratory Results 03/05/18 06:00 03/05/18 06:00 03/07/18 03/08/18 03/09/18 05:59 05:59 05:59 Intake Total 1280 815 356 Output Total 450 250 Balance 830 565 356 Physical Exam - Physical Exam General Appearance: WD/WN, alert, no apparent distress Respiratory: normal breath sounds, prolonged expiration, No crackles, No rhonchi , No wheezing Cardiac/Chest: regular rate, rhythm, No edema, No diastolic murmur, No systolic murmur Skin: normal color, warm/dry Neuro/Psych: alert, normal mood/affect, speech abnormalities ICD10 Worksheet Patient Problems: Problems Problem Status Onset Intracranial hemorrhage Acute
[2018-03-08] MEDS: LORazepam 0.5 MG TAB PO PRN (21:16)
[2018-03-09] MEDS: CHOLECALCIFEROL VIT D3 1,000 UNITS TAB PO SCH (08:24)
[2018-03-09] MEDS: LOSARTAN POTASSIUM 25 MG TAB PO SCH (08:25)
[2018-03-09] MEDS: FUROSEMIDE 20 MG TAB PO SCH (08:25)
[2018-03-09] MEDS: ATORVASTATIN CALCIUM 40 MG TAB PO SCH (08:25)
[2018-03-09] MEDS: CALCIUM CARBONATE 500 MG TAB PO SCH (08:25)
[2018-03-09] MEDS: METOPROLOL SUCCINATE XR 100 MG TAB PO SCH (08:25)
[2018-03-09] MEDS: BUDESONIDE/FORMOTEROL 80/4.5 60 PUFFS/MDI IH SCH ×2 (08:26→20:40)
[2018-03-09] MEDS: TIOTROPIUM INHALER 18 MCG/DOSE 5 DOSE/MDI IH SCH (08:26)
[2018-03-09] MEDS ORDERED: CITALOPRAM 20 MG TAB PO SCH (09:00)
--- NOTE | 2018-03-09 09:22 | SOAPPROG ---
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 * IT DOES APPEAR THAT HIS RECEPTIVE APHASIA IS IMPROVING. HE HAS MODERATELY SEVERE EXPRESSIVE APHASIA. * Continue Speech and Language Pathology to optimize his communication. * Decreased mobility, and assistance required for activities of daily living. HE WALKED FROM THE DINING SANDOVAL BACK TO HIS ROOM WITH ONLY STANDBY ASSISTANCE WITHOUT MUCH DIFFICULTY REPORTED BY NURSING STAFF. * Initial functional independence measure 71 on 03/06/2008. Ambulates with no device needing contact guard assist. Climbed and descended 1 flight of stairs with contact guard assist. He has right proximal muscle weakness. Dressing is done with setup and standby assist. Right visual field cut versus hemineglect per OT. * Not self-managing O2. * Continue PT and OT to optimize mobility and activities of daily living to the independent or modified independent level. * Hypertension. * Amlodipine has been increased. Continue losartan and metoprolol. Adequate control. * Orthostatic hypotension. Monitor for symptoms. Monitor blood pressures. * Chronic obstructive pulmonary disease. Continue budesonide and albuterol as well as oxygen. Incentive spirometry to ensure that he has full lung expansion. NURSING REPORTS THAT HE USES 6 L OF O2 WHILE WALKING WITH PHYSICAL THERAPY. HE HAS A TENDENCY TO DESATURATE WITH ACTIVITIES. WHILE SITTING IN ROOM HE IS USING 4 L O2. LUNGS ARE CLEAR THIS MORNING. * Inhalers discussed with daughter, 03/06/2018. He was previously on tiotropium. Started tiotropium 03/06/2018. * Daughter also reports that goal oxygenation is greater than 88% due to concern regarding CO2 retention and decreased respiratory drive with higher oxygen saturation. * Adjustment disorder with depressed mood vs. depression. Initiate citalopram 5 mg QD starting 03/08/2018. Plan to increase to 10 mg QD if tolerated X 1 - 2 days, and then to 20 mg QD. Counseling per STRAP CUTTER. * Subclinical hypothyroidism with mild elevation of TSH and slightly low free T3. Free T4 is normal. * History of thyroid cancer and surgery. TSH may be abnormal due to acute illness. * Advise repeat TSH in 4 - 6 weeks. * Dyslipidemia. Continue atorvastatin. * Diastolic dysfunction. Continue furosemide. Normal renal function and electrolytes on BMP 03/05/2018. * Thrombocytopenia. Resolved on CBC 03/01/2018. * Headache. Continue acetaminophen, as well as oxycodone on a p.r.n. basis. PROGNOSIS: It is expected that he will have some improvement as the brain clears blood. He also is likely to have improved communication through strategies learned with Speech Language Pathology. As this was a large lobar hemorrhage, he is at risk of a recurrence and NSAIDs or antithrombotic/ anticoagulant medications are contraindicated unless there is a very strong indication, for instance, a DVT or need for coronary stenting. PROPHYLAXIS: Anticoagulants are contraindicated. He will have sequential compression devices at night. FOLLOWUP: Acute hospital discharge instructions recommend follow up with primary care provider within a week of his discharge from rehabilitation. It is unclear whether Neurosurgery needs to see him again and whether there should be repeat brain imaging. This will be clarified with Neurosurgery. It is recommended that he have a stress test on an outpatient basis due to his indeterminate rise in troponin during his hospitalization. It is likely that his followup will be through the [facility]. DISPOSITION: May not meed much more PT as he has good mobility. OT still needs to address vision and perception, and O2 management. Has large FLORAL DECORATOR need. Unclear re return to home in [facility] (3 SHADE then 12 steps to main level) versus daughter or in [place]. Plan for discharge 03/15/2018. Will continue home or outpatient FLORAL DECORATOR. Plan: 03/09/18 09:16 Subjective: HE REPORTS SOME PAIN IN THE INTERSCAPULAR REGION. HE DENIES NAUSEA, VOMITING, ABDOMINAL PAIN OR PAIN RELATED TO MEALS. HE DOES NOT REPORT SHORTNESS OF BREATH. Objective: Vital Signs Temp Pulse Resp BP Pulse Ox 36.5 C 74 20 116/79 90 L 03/09/18 07:01 03/09/18 08:25 03/09/18 07:01 03/09/18 08:25 03/09/18 07:01 Laboratory Results 03/05/18 06:00 03/05/18 06:00 03/08/18 03/09/18 03/10/18 05:59 05:59 05:59 Intake Total 815 953 250 Output Total 250 Balance 565 953 250 Physical Exam - Physical Exam General Appearance: WD/WN, alert, no apparent distress Respiratory: lungs clear, normal breath sounds, No stridor, No wheezing Cardiac/Chest: regular rate, rhythm, gallop (S3 GALLOP.), No JVD Abdomen: normal bowel sounds, non-tender Extremities: normal range of motion Neuro/Psych: alert (SLIGHTLY BLUNTED AFFECT. HAS EXPRESSIVE AND RECEPTIVE APHASIA BUT HE IS FOLLOWING SOME COMMANDS.) ICD10 Worksheet Patient Problems: Problems Problem Status Onset Intracranial hemorrhage Acute
--- NOTE | 2018-03-09 13:37 | SOAPPROG ---
SOAP Progress Note Assessment/Plan: Assessment: Blood stagnation and phlegm obstruction of the mind Plan: Move blood stasis and drain phlegm Acupuncture Points: Si susanne gabrielle, head/face scalp points, balance point scalp, shenmen, point zero, LI4 03/07/18 10:19 03/09/18 13:48 Acupuncture Point additions: HT7, PC6, KD1, LU7, MJ scalp pt, LL scalp pt, Temporal scalp pt, balance scalp point. Subjective: Patient still has severe receptive and moderate expressive aphasia. Current complaints none by the patient. Headache was relieved after last acupuncture treatment two days ago. Currently no headache. Bowels are good. "Sleep is ok", he states. Digestion is good. Stress is moderate. Balance slightly off sometimes. Objective: Vital Signs Temp Pulse Resp BP Pulse Ox 36.5 C 74 20 116/79 90 L 03/09/18 07:01 03/09/18 08:25 03/09/18 07:01 03/09/18 08:25 03/09/18 07:01 Laboratory Results 03/05/18 06:00 03/05/18 06:00 03/08/18 03/09/18 03/10/18 05:59 05:59 05:59 Intake Total 815 953 750 Output Total 250 Balance 565 953 750 Skin color less marc getting more pink color. Nose area still marc. Extremely dry skin in general. Lots of red/purple/black bruising on top of both hands. Patient was more vocal and expressive with myself today. He is trying to work on remembering. He remembered his 's name. But still having severe difficulty. - Time Spent With Patient Time Spent With Patient: Acupuncture retention time 1 hour. ICD10 Worksheet Patient Problems: Problems Problem Status Onset Intracranial hemorrhage Acute
[2018-03-09] MEDS: LORazepam 0.5 MG TAB PO PRN (20:40)
[2018-03-09] MEDS: ACETAMINOPHEN 325 MG TAB PO PRN (20:40)
[2018-03-10] MEDS: BUDESONIDE/FORMOTEROL 80/4.5 60 PUFFS/MDI IH SCH ×2 (08:29→20:14)
[2018-03-10] MEDS: TIOTROPIUM INHALER 18 MCG/DOSE 5 DOSE/MDI IH SCH (08:29)
[2018-03-10] MEDS: ATORVASTATIN CALCIUM 40 MG TAB PO SCH (08:32)
[2018-03-10] MEDS: LOSARTAN POTASSIUM 25 MG TAB PO SCH (08:33)
[2018-03-10] MEDS: CHOLECALCIFEROL VIT D3 1,000 UNITS TAB PO SCH (08:33)
[2018-03-10] MEDS: FUROSEMIDE 20 MG TAB PO SCH (08:33)
[2018-03-10] MEDS: METOPROLOL SUCCINATE XR 100 MG TAB PO SCH (08:33)
[2018-03-10] MEDS: CALCIUM CARBONATE 500 MG TAB PO SCH (08:33)
--- NOTE | 2018-03-10 08:37 | SOAPPROG ---
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 * RECEPTIVE APHASIA IS IMPROVING PER SPEECH THERAPY. HE HAS MODERATELY SEVERE EXPRESSIVE APHASIA. * Continue Speech and Language Pathology to optimize his communication. * Decreased mobility, and assistance required for activities of daily living. HE WALKED FROM THE DINING SANDOVAL BACK TO HIS ROOM WITH ONLY STANDBY ASSISTANCE WITHOUT MUCH DIFFICULTY REPORTED BY NURSING STAFF. * Initial functional independence measure 71 on 03/06/2008. Ambulates with no device needing contact guard assist. Climbed and descended 1 flight of stairs with contact guard assist. He has right proximal muscle weakness. Dressing is done with setup and standby assist. Right visual field cut versus hemineglect per OT. * Not self-managing O2. * Continue PT and OT to optimize mobility and activities of daily living to the independent or modified independent level. * Hypertension. * Amlodipine has been increased. Continue losartan and metoprolol. Adequate control. BLOOD PRESSURE THIS MORNING 133/86 * Orthostatic hypotension. Monitor for symptoms. Monitor blood pressures. * Chronic obstructive pulmonary disease. Continue budesonide and albuterol as well as oxygen. Incentive spirometry to ensure that he has full lung expansion. HE IS USING 6 L OF O2 WHILE WALKING WITH PHYSICAL THERAPY. HE HAS A TENDENCY TO DESATURATE WITH ACTIVITIES. WHILE SITTING IN ROOM HE IS USING 4 L O2. LUNGS ARE CLEAR THIS MORNING. * Inhalers discussed with daughter, 03/06/2018. He was previously on tiotropium. Started tiotropium 03/06/2018. * Daughter also reports that goal oxygenation is greater than 88% due to concern regarding CO2 retention and decreased respiratory drive with higher oxygen saturation. * Adjustment disorder with depressed mood vs. depression. CITALOPRAM WAS INCREASED TO 10 MG TODAY. Counseling per RUBBER BOOTS AND SHOES REPAIRER. * Subclinical hypothyroidism with mild elevation of TSH and slightly low free T3. Free T4 is normal. * History of thyroid cancer and surgery. TSH may be abnormal due to acute illness. * Advise repeat TSH in 4 - 6 weeks. * Dyslipidemia. Continue atorvastatin. * Diastolic dysfunction. Continue furosemide. Normal renal function and electrolytes on BMP 03/05/2018. * Thrombocytopenia. Resolved on CBC 03/01/2018. * Headache. Continue acetaminophen, as well as oxycodone on a p.r.n. basis. PROGNOSIS: It is expected that he will have some improvement as the brain clears blood. He also is likely to have improved communication through strategies learned with Speech Language Pathology. As this was a large lobar hemorrhage, he is at risk of a recurrence and NSAIDs or antithrombotic/ anticoagulant medications are contraindicated unless there is a very strong indication, for instance, a DVT or need for coronary stenting. PROPHYLAXIS: Anticoagulants are contraindicated. He will have sequential compression devices at night. FOLLOWUP: Acute hospital discharge instructions recommend follow up with primary care provider within a week of his discharge from rehabilitation. It is unclear whether Neurosurgery needs to see him again and whether there should be repeat brain imaging. This will be clarified with Neurosurgery. It is recommended that he have a stress test on an outpatient basis due to his indeterminate rise in troponin during his hospitalization. It is likely that his followup will be through the [facility]. DISPOSITION: May not meed much more PT as he has good mobility. OT still needs to address vision and perception, and O2 management. Has large JIG INSPECTOR need. Unclear re return to home in [facility] (3 SHADE then 12 steps to main level) versus daughter or in [place]. Plan for discharge 03/15/2018. Will continue home or outpatient JIG INSPECTOR. Plan: 03/09/18 09:16 03/10/18 08:39 Subjective: NO COMPLAINTS PER PATIENT OR NURSING STAFF Objective: Vital Signs Temp Pulse Resp BP Pulse Ox 36.7 C 64 17 133/86 H 97 03/10/18 05:29 03/10/18 05:29 03/10/18 05:29 03/10/18 05:29 03/10/18 05:29 Laboratory Results 03/05/18 06:00 03/05/18 06:00 03/09/18 03/10/18 03/11/18 05:59 05:59 05:59 Intake Total 953 1631 Balance 953 1631 Physical Exam - Physical Exam General Appearance: WD/WN, alert, no apparent distress Respiratory: lungs clear, normal breath sounds Cardiac/Chest: No edema Abdomen: normal bowel sounds, non-tender, soft Skin: normal color, warm/dry Extremities: No swelling, No Jerson's sign Neuro/Psych: speech abnormalities (EXPRESSIVE AND RECEPTIVE APHASIA. ), other ( GAIT EVALUATION AMBULATES WITHOUT ASSISTIVE DEVICE STANDBY ASSIST ONLY SLIGHTLY DECREASED STEP AND STRIDE LENGTH. NO EVIDENCE OF KNEE OR ANKLE INSTABILITY.) ICD10 Worksheet Patient Problems: Problems Problem Status Onset Intracranial hemorrhage Acute
[2018-03-10] MEDS: CITALOPRAM 20 MG TAB PO SCH (08:41)
--- NOTE | 2018-03-11 08:33 | SOAPPROG ---
SOAP Progress Note Assessment/Plan: Assessment: Blood stagnation and phlegm obstruction of the mind Plan: Move blood stasis and drain phlegm Acupuncture Points: Si susanne gabrielle, head/face scalp points, balance point scalp, shenmen, point zero, LI4 03/07/18 10:19 03/09/18 13:48 Acupuncture Point additions: HT7, PC6, KD1, LU7, MJ scalp pt, LL scalp pt, Temporal scalp pt, balance scalp point. 03/11/18 08:27 Acupuncture points addition: Upper Gladys and Lower Gladys scalp points Subjective: Bowels are good. No problem sleeping. Stress is high. Energy not to bad. No headaches. No pain in the body. Objective: Vital Signs Temp Pulse Resp BP Pulse Ox 36.5 C 64 16 120/83 H 93 03/11/18 06:44 03/11/18 06:44 03/11/18 06:44 03/11/18 06:44 03/11/18 06:44 Laboratory Results 03/05/18 06:00 03/05/18 06:00 03/10/18 03/11/18 03/12/18 05:59 05:59 05:59 Intake Total 1631 1760 Balance 1631 1760 Skin color looks more even. Bruises on hand/arm getting better. Notice he is trying to talk more during acupuncture treatments. He is trying to work on remembering words, names and time frames. - Time Spent With Patient Time Spent With Patient: Acupuncture Needle retention time 1 hour and 10 minutes. ICD10 Worksheet Patient Problems: Problems Problem Status Onset Intracranial hemorrhage Acute
[2018-03-11] MEDS: CITALOPRAM 20 MG TAB PO SCH (09:21)
[2018-03-11] MEDS: LOSARTAN POTASSIUM 25 MG TAB PO SCH (09:21)
[2018-03-11] MEDS: CHOLECALCIFEROL VIT D3 1,000 UNITS TAB PO SCH (09:22)
[2018-03-11] MEDS: METOPROLOL SUCCINATE XR 100 MG TAB PO SCH (09:22)
[2018-03-11] MEDS: FUROSEMIDE 20 MG TAB PO SCH (09:23)
[2018-03-11] MEDS: BUDESONIDE/FORMOTEROL 80/4.5 60 PUFFS/MDI IH SCH ×2 (09:23→20:48)
[2018-03-11] MEDS: CALCIUM CARBONATE 500 MG TAB PO SCH (09:23)
[2018-03-11] MEDS: TIOTROPIUM INHALER 18 MCG/DOSE 5 DOSE/MDI IH SCH (09:24)
--- NOTE | 2018-03-11 12:47 | SOAPPROG ---
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 * Improving. Expressive appears to be much more impaired than receptive. * Continue Speech and Language Pathology to optimize his communication. * Decreased mobility, and assistance required for activities of daily living. * Initial functional independence measure 71 on 03/06/2008. Ambulates with no device needing contact guard assist. Climbed and descended 1 flight of stairs with contact guard assist. He has right proximal muscle weakness. He was dyspneic in the shower down to 85% oxygen saturation on 4 L while seated. Dressing is done with setup and standby assist. Right visual field cut versus hemineglect per OT. * Improved self management of O2 tank. * Continue PT and OT to optimize mobility and activities of daily living to the independent or modified independent level. * Hypertension. * Amlodipine has been increased. Continue losartan and metoprolol. Adequate control. * Orthostatic hypotension. Monitor for symptoms. Monitor blood pressures. * Chronic obstructive pulmonary disease. Continue budesonide and albuterol as well as oxygen. Incentive spirometry to ensure that he has full lung expansion. * Inhalers discussed with daughter, 03/06/2018. He was previously on tiotropium. Started tiotropium 03/06/2018. * Daughter also reports that goal oxygenation is greater than 88% due to concern regarding CO2 retention and decreased respiratory drive with higher oxygen saturation. * Adjustment disorder with depressed mood vs. depression. Initiate citalopram 5 mg QD starting 03/08/2018. Increased to 10 mg on 03/10/2018. Continue to monitor and consider further increased to 20 mg. Counseling per LYE BATH OPERATOR. * Subclinical hypothyroidism with mild elevation of TSH and slightly low free T3. Free T4 is normal. * History of thyroid cancer and surgery. TSH may be abnormal due to acute illness. * Advise repeat TSH in 4 - 6 weeks. * Dyslipidemia. Continue atorvastatin. * Diastolic dysfunction. Continue furosemide. Normal renal function and electrolytes on BMP 03/05/2018. * Thrombocytopenia. Resolved on CBC 03/01/2018. * Headache. Continue acetaminophen, as well as oxycodone on a p.r.n. basis. PROGNOSIS: It is expected that he will have some improvement as the brain clears blood. He also is likely to have improved communication through strategies learned with Speech Language Pathology. As this was a large lobar hemorrhage, he is at risk of a recurrence and NSAIDs or antithrombotic/ anticoagulant medications are contraindicated unless there is a very strong indication, for instance, a DVT or need for coronary stenting. PROPHYLAXIS: Anticoagulants are contraindicated. He will have sequential compression devices at night. FOLLOWUP: Acute hospital discharge instructions recommend follow up with primary care provider within a week of his discharge from rehabilitation. It is unclear whether Neurosurgery needs to see him again and whether there should be repeat brain imaging. This will be clarified with Neurosurgery. It is recommended that he have a stress test on an outpatient basis due to his indeterminate rise in troponin during his hospitalization. It is likely that his followup will be through the [facility]. DISPOSITION: Plan to discharge to daughter's home in [place]. His home and call Devyn Saucedo has 3 steps to enter and 12 steps within the multi story house. MANUFACTURING WORKER found high-frequency hearing loss; he should follow up with the [place] audiology department consider referral to Neuro-Ophthalmology. Planned discharge 03/13/2018. He will have outpatient PT OT and MANUFACTURING WORKER. MANUFACTURING WORKER advising a day rehabilitation program or possible referral to the [place] in [place] for residential treatment for as long as 6 weeks. 03/11/18 12:41 Subjective: No complaints. Reports mood is improved though therapy staff still note period of tearfulnes and frustration regarding expressive aphasia. No cough or dyspnea , no fevers or chills, not in pain. Objective: Vital Signs Temp Pulse Resp BP Pulse Ox 36.5 C 64 16 120/83 H 93 03/11/18 06:44 03/11/18 06:44 03/11/18 06:44 03/11/18 06:44 03/11/18 06:44 Laboratory Results 03/05/18 06:00 03/05/18 06:00 03/10/18 03/11/18 03/12/18 05:59 05:59 05:59 Intake Total 1631 1760 Balance 1631 1760 Physical Exam - Physical Exam General Appearance: WD/WN, alert, no apparent distress Respiratory: No respiratory distress, No accessory muscle use Skin: normal color, warm/dry Neuro/Psych: alert, normal mood/affect, aphasia (Expressive much greater than receptive.), No abnormal gait (No device, managing O2 tank on wheels) ICD10 Worksheet Patient Problems: Problems Problem Status Onset Intracranial hemorrhage Acute
[2018-03-11] MEDS: ATORVASTATIN CALCIUM 40 MG TAB PO SCH (15:35)
[2018-03-11] MEDS: SENNOSIDES 1 TAB PO PRN (15:36)
[2018-03-12] MEDS: FUROSEMIDE 20 MG TAB PO SCH (08:11)
[2018-03-12] MEDS: ATORVASTATIN CALCIUM 40 MG TAB PO SCH (08:11)
[2018-03-12] MEDS: CALCIUM CARBONATE 500 MG TAB PO SCH (08:12)
[2018-03-12] MEDS: CHOLECALCIFEROL VIT D3 1,000 UNITS TAB PO SCH (08:12)
[2018-03-12] MEDS: LOSARTAN POTASSIUM 25 MG TAB PO SCH (08:12)
[2018-03-12] MEDS: METOPROLOL SUCCINATE XR 100 MG TAB PO SCH (08:13)
[2018-03-12] MEDS: CITALOPRAM 20 MG TAB PO SCH (08:14)
[2018-03-12] MEDS: BUDESONIDE/FORMOTEROL 80/4.5 60 PUFFS/MDI IH SCH ×2 (08:17→22:11)
[2018-03-12] MEDS: TIOTROPIUM INHALER 18 MCG/DOSE 5 DOSE/MDI IH SCH (08:18)
[2018-03-12] MEDS: ACETAMINOPHEN 325 MG TAB PO PRN ×2 (12:19→19:24)
--- NOTE | 2018-03-12 12:52 | SOAPPROG ---
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 * Improving. Expressive appears to be much more impaired than receptive. * Continue Speech and Language Pathology to optimize his communication. * Decreased mobility, and assistance required for activities of daily living. * Initial functional independence measure 71 on 03/06/2008. Ambulates with no device needing contact guard assist. Climbed and descended 1 flight of stairs with contact guard assist. He has right proximal muscle weakness. He was dyspneic in the shower down to 85% oxygen saturation on 4 L while seated. Dressing is done with setup and standby assist. Right visual field cut versus hemineglect per OT. * Improved self management of O2 tank. * Continue PT and OT to optimize mobility and activities of daily living to the independent or modified independent level. * Hypertension. * Amlodipine has been increased. Continue losartan and metoprolol. Adequate control. * Orthostatic hypotension. Monitor for symptoms. Monitor blood pressures. * Chronic obstructive pulmonary disease. Continue budesonide and albuterol as well as oxygen. Incentive spirometry to ensure that he has full lung expansion. * Inhalers discussed with daughter, 03/06/2018. He was previously on tiotropium. Started tiotropium 03/06/2018. * Daughter also reports that goal oxygenation is greater than 88% due to concern regarding CO2 retention and decreased respiratory drive with higher oxygen saturation. * Adjustment disorder with depressed mood vs. depression. Initiate citalopram 5 mg QD starting 03/08/2018. Increased to 10 mg on 03/10/2018. Tolerating well; will increase to to 20 mg starting 03/13/2018.. Counseling per EXERCISE MANAGER. * Subclinical hypothyroidism with mild elevation of TSH and slightly low free T3. Free T4 is normal. * History of thyroid cancer and surgery. TSH may be abnormal due to acute illness. * Advise repeat TSH in 4 - 6 weeks. * Dyslipidemia. Continue atorvastatin. * Diastolic dysfunction. Continue furosemide. Normal renal function and electrolytes on BMP 03/05/2018. * Thrombocytopenia. Resolved on CBC 03/01/2018. * Headache. Continue acetaminophen, as well as oxycodone on a p.r.n. basis. PROGNOSIS: It is expected that he will have some improvement as the brain clears blood. He also is likely to have improved communication through strategies learned with Speech Language Pathology. As this was a large lobar hemorrhage, he is at risk of a recurrence, and NSAIDs or antithrombotic/ anticoagulant medications are contraindicated unless there is a very strong indication, for instance, a DVT or need for coronary stenting. PROPHYLAXIS: Anticoagulants are contraindicated. He will have sequential compression devices at night. FOLLOWUP: Acute hospital discharge instructions recommend follow up with primary care provider within a week of his discharge from rehabilitation. Neurosurgery follow-up and question of repeat brain imaging discussed with DAXA Zimmer, 03/12/2018. He will check with neurosurgeon Dr. Ford. It is recommended that he have a stress test on an outpatient basis due to his indeterminate rise in troponin during his hospitalization. It is likely that his followup will be through the [place] [facility]. DISPOSITION: Plan to discharge to daughter's home in [place]. His home and call Devyn Saucedo has 3 steps to enter and 12 steps within the multi story house. STONECUTTER APPRENTICE HAND found high-frequency hearing loss; he should follow up with the [place] audiology department consider referral to Neuro-Ophthalmology. Planned discharge 03/14/2018. He will have outpatient PT OT and STONECUTTER APPRENTICE HAND. STONECUTTER APPRENTICE HAND advising a day rehabilitation program or possible referral to the [place] in [place] for residential treatment for as long as 6 weeks. 03/12/18 12:26 03/12/18 13:02 Subjective: Reports low mood today. Otherwise without complaints. Not in pain. No cough or dyspnea. No fevers or chills. Sleeping well. Denies adverse effects of citalopram including no tremor no sweats is no diarrhea and no insomnia. Objective: Vital Signs Temp Pulse Resp BP Pulse Ox 36.7 C 66 20 110/76 92 03/12/18 08:00 03/12/18 08:13 03/12/18 08:00 03/12/18 08:13 03/11/18 18:23 Laboratory Results 03/05/18 06:00 03/05/18 06:00 03/11/18 03/12/18 03/13/18 05:59 05:59 05:59 Intake Total 1760 1700 356 Balance 1760 1700 356 Physical Exam - Physical Exam General Appearance: WD/WN, alert, no apparent distress Respiratory: normal breath sounds, prolonged expiration, No crackles, No rhonchi , No wheezing Cardiac/Chest: regular rate, rhythm, No edema, No diastolic murmur, No systolic murmur Skin: normal color, warm/dry, other (Ecchymoses on right forearm.) Neuro/Psych: alert, normal mood/affect, speech abnormalities (Expression limited to short simple phrases. Comprehends much of what he is told but unclear regarding more complex the concepts.) ICD10 Worksheet Patient Problems: Problems Problem Status Onset Intracranial hemorrhage Acute
[2018-03-12] MEDS: LORazepam 0.5 MG TAB PO PRN (19:25)
[2018-03-13] MEDS: BUDESONIDE/FORMOTEROL 80/4.5 60 PUFFS/MDI IH SCH ×2 (08:27→20:08)
[2018-03-13] MEDS: ATORVASTATIN CALCIUM 40 MG TAB PO SCH (08:28)
[2018-03-13] MEDS: CHOLECALCIFEROL VIT D3 1,000 UNITS TAB PO SCH (08:28)
[2018-03-13] MEDS: CITALOPRAM 20 MG TAB PO SCH (08:28)
[2018-03-13] MEDS: CALCIUM CARBONATE 500 MG TAB PO SCH (08:28)
[2018-03-13] MEDS: LOSARTAN POTASSIUM 25 MG TAB PO SCH (08:29)
[2018-03-13] MEDS: METOPROLOL SUCCINATE XR 100 MG TAB PO SCH (08:29)
[2018-03-13] MEDS: TIOTROPIUM INHALER 18 MCG/DOSE 5 DOSE/MDI IH SCH (08:29)
[2018-03-13] MEDS: FUROSEMIDE 20 MG TAB PO SCH (08:29)
[2018-03-13] MEDS: ACETAMINOPHEN 325 MG TAB PO PRN ×2 (12:15→16:18)
[2018-03-13] MEDS: oxyCODONE IR 5 MG TAB PO PRN (13:04)
--- NOTE | 2018-03-13 14:38 | SOAPPROG ---
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 * Improving. Expressive appears to be more impaired than receptive. * Has 88% consistency for yes/no on visually based tasks. * Continue Speech and Language Pathology to optimize his communication. * Decreased mobility, and assistance required for activities of daily living. * Initial functional independence measure 71 on 03/06/2008; increased to 95 as of 03/13/2018. Ambulates with no device needing contact guard assist. Climbed and descended 1 flight of stairs with contact guard assist. Independent on the unit and in his room during the day. Has mild right neglect. Needs supervision on stairs curbs and uneven surfaces. Has decreased endurance. Modified independence for dressing and grooming and hygiene, minimal assist for bathing and expect he will need supervision at no driving. Neuro-Ophthalmology evaluation recommended for after discharge. * Improved self management of O2 tank. * Continue PT and OT to optimize mobility and activities of daily living to the independent or modified independent level. * Hypertension. * Amlodipine has been increased. Continue losartan and metoprolol. * Blood pressure elevated when checked in the morning however he also has orthostatic hypotension. Would adjust medications by adding an evening dose of losartan if his morning blood pressure is greater than 150/90, as long he does not have orthostatic symptoms. * Chronic obstructive pulmonary disease. Continue budesonide and albuterol as well as oxygen. Incentive spirometry to ensure that he has full lung expansion. * Inhalers discussed with daughter, 03/06/2018. He was previously on tiotropium. Started tiotropium 03/06/2018. * Daughter also reports that goal oxygenation is greater than 88% due to concern regarding CO2 retention and decreased respiratory drive with higher oxygen saturation. * Adjustment disorder with depressed mood vs. depression. Initiate citalopram 5 mg QD starting 03/08/2018. Increased to 10 mg on 03/10/2018. Tolerating well; will increase to to 20 mg starting 03/13/2018. Counseling per LINER WORKER. * Subclinical hypothyroidism with mild elevation of TSH and slightly low free T3. Free T4 is normal. * History of thyroid cancer and surgery. TSH may be abnormal due to acute illness. * Advise repeat TSH in 4 - 6 weeks. * Dyslipidemia. Continue atorvastatin. * Diastolic dysfunction. Continue furosemide. Normal renal function and electrolytes on [facility] 03/05/2018. * Thrombocytopenia. Resolved on CBC 03/01/2018. * Headache. Continue acetaminophen, as well as oxycodone on a p.r.n. basis. PROGNOSIS: It is expected that he will have some improvement as the brain clears blood. He also is likely to have improved communication through strategies learned with Speech Language Pathology. As this was a large lobar hemorrhage, he is at risk of a recurrence, and NSAIDs or antithrombotic/ anticoagulant medications are contraindicated unless there is a very strong indication, for instance, a DVT or need for coronary stenting. PROPHYLAXIS: Anticoagulants are contraindicated. He will have sequential compression devices at night. FOLLOWUP: Acute hospital discharge instructions recommend follow up with primary care provider within a week of his discharge from rehabilitation. Neurosurgery follow-up and question of repeat brain imaging discussed with DAXA Zimmer, 03/12/2018. He will check with neurosurgeon Dr. Ford. It is recommended that he have a stress test on an outpatient basis due to his indeterminate rise in troponin during his hospitalization. It is likely that his followup will be through the [facility]. Attended staffing, 15 min. Discussed with case management, nursing, dietitian, PT, OT, MANAGER OF CORPORATE. Attended family conference, 30 min, patient's and daughter participating. DISPOSITION: Plan to discharge to daughter's home in [place]. His home and call Devyn Saucedo has 3 steps to enter and 12 steps within the multi story house. MANAGER OF CORPORATE found high-frequency hearing loss; he should follow up with the [place] audiology department. He will have referral to Neuro-Ophthalmology. Planned discharge 03/15/2018. He will have outpatient PT OT and MANAGER OF CORPORATE. 03/13/18 14:31 Subjective: Reports low mood again today. Speech therapist reports that he is easily frustrated with challenging communication tasks. No fevers or chills, no cough or dyspnea. Objective: Vital Signs Temp Pulse Resp BP Pulse Ox 36.6 C 70 18 141/85 H 91 L 03/13/18 07:31 03/13/18 08:29 03/13/18 07:31 03/13/18 08:29 03/13/18 07:31 Laboratory Results 03/05/18 06:00 03/05/18 06:00 03/12/18 03/13/18 03/14/18 05:59 05:59 05:59 Intake Total 1700 1436 200 Balance 1700 1436 200 - Time Spent With Patient Time Spent With Patient: Greater than 35 min floor time today, including more than 50% of the time in coordination of care during staffing meeting and counseling patient's and daughter during family meeting. Physical Exam - Physical Exam General Appearance: WD/WN, alert, no apparent distress Respiratory: normal breath sounds, prolonged expiration, No crackles, No rhonchi , No wheezing Cardiac/Chest: regular rate, rhythm, No edema, No diastolic murmur, No systolic murmur Skin: normal color, warm/dry, other (Ecchymoses present on right forearm) Neuro/Psych: alert, aphasia (Expressive greater than receptive), depressed affect, No abnormal gait ICD10 Worksheet Patient Problems: Problems Problem Status Onset Intracranial hemorrhage Acute
[2018-03-14] MEDS: ATORVASTATIN CALCIUM 40 MG TAB PO SCH (08:50)
[2018-03-14] MEDS: FUROSEMIDE 20 MG TAB PO SCH (08:50)
[2018-03-14] MEDS: CALCIUM CARBONATE 500 MG TAB PO SCH (08:50)
[2018-03-14] MEDS: CITALOPRAM 20 MG TAB PO SCH (08:50)
[2018-03-14] MEDS: CHOLECALCIFEROL VIT D3 1,000 UNITS TAB PO SCH (08:50)
[2018-03-14] MEDS: TIOTROPIUM INHALER 18 MCG/DOSE 5 DOSE/MDI IH SCH (08:51)
[2018-03-14] MEDS: BUDESONIDE/FORMOTEROL 80/4.5 60 PUFFS/MDI IH SCH ×2 (08:51→22:09)
[2018-03-14] MEDS: METOPROLOL SUCCINATE XR 100 MG TAB PO SCH (08:51)
[2018-03-14] MEDS: LOSARTAN POTASSIUM 25 MG TAB PO SCH (08:51)
--- NOTE | 2018-03-14 14:15 | SOAPPROG ---
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 * Improving. Expressive appears to be more impaired than receptive. * Has 88% consistency for yes/no on visually based tasks. * Continue Speech and Language Pathology to optimize his communication. * Decreased mobility, and assistance required for activities of daily living. * Initial functional independence measure 71 on 03/06/2008; increased to 95 as of 03/13/2018. Ambulates with no device needing contact guard assist. Climbed and descended 1 flight of stairs with contact guard assist. Independent on the unit and in his room during the day. Has mild right neglect. Needs supervision on stairs curbs and uneven surfaces. Has decreased endurance. Modified independence for dressing and grooming and hygiene, minimal assist for bathing and expect he will need supervision at no driving. Neuro-Ophthalmology evaluation recommended for after discharge. * Improved self management of O2 tank. * Continue PT and OT to optimize mobility and activities of daily living to the independent or modified independent level. * Hypertension. * Amlodipine has been increased. Continue losartan and metoprolol. * Blood pressure elevated when checked in the morning however he also has orthostatic hypotension. Would adjust medications by adding an evening dose of losartan if his morning blood pressure is greater than 150/90, as long he does not have orthostatic symptoms. * Chronic obstructive pulmonary disease. Continue budesonide and albuterol as well as oxygen. Incentive spirometry to ensure that he has full lung expansion. * Inhalers discussed with daughter, 03/06/2018. He was previously on tiotropium. Started tiotropium 03/06/2018. * Daughter also reports that goal oxygenation is greater than 88% due to concern regarding CO2 retention and decreased respiratory drive with higher oxygen saturation. * Adjustment disorder with depressed mood vs. depression. Initiate citalopram 5 mg QD starting 03/08/2018. Increased to 10 mg on 03/10/2018. Tolerating well; will increase to to 20 mg starting 03/13/2018. Counseling per FORENSIC SCIENTIST. * Unclear if reduced appetite and reduced participation today may be due insomnia caused by higher dose of citalopram. Observe for sleep overnight and for participation tomorrow, 03/15/2018. Will decrease citalopram dose to 10 mg on 03/15/2018. * Subclinical hypothyroidism with mild elevation of TSH and slightly low free T3. Free T4 is normal. * History of thyroid cancer and surgery. TSH may be abnormal due to acute illness. * Advise repeat TSH in 4 - 6 weeks. * Dyslipidemia. Continue atorvastatin. * Diastolic dysfunction. Continue furosemide. Normal renal function and electrolytes on BMP 03/05/2018. * Thrombocytopenia. Resolved on CBC 03/01/2018. * Headache. Continue acetaminophen, as well as oxycodone on a p.r.n. basis. PROGNOSIS: It is expected that he will have some improvement as the brain clears blood. He also is likely to have improved communication through strategies learned with Speech Language Pathology. As this was a large lobar hemorrhage, he is at risk of a recurrence, and NSAIDs or antithrombotic/ anticoagulant medications are contraindicated unless there is a very strong indication, for instance, a DVT or need for coronary stenting. PROPHYLAXIS: Anticoagulants are contraindicated. He will have sequential compression devices at night. FOLLOWUP: Acute hospital discharge instructions recommend follow up with primary care provider within a week of his discharge from rehabilitation. Neurosurgery follow-up and question of repeat brain imaging discussed with DAXA Zimmer, 03/12/2018. He will check with neurosurgeon Dr. Ford. It is recommended that he have a stress test on an outpatient basis due to his indeterminate rise in troponin during his hospitalization. It is likely that his followup will be through the [facility]. DISPOSITION: Plan to discharge to daughter's home in [place]. His home and call Devyn Saucedo has 3 steps to enter and 12 steps within the multi story house. MEDIA SPECIALIST found high-frequency hearing loss; he should follow up with the [place] audiology department. He will have referral to Neuro-Ophthalmology. Planned discharge 03/15/2018. He will have outpatient PT OT and MEDIA SPECIALIST. 03/14/18 14:12 03/14/18 16:09 Subjective: Feeling down today. He has been refusing therapies and not eating. On further discussion including discussion with his nurse it seems that he did not sleep well last night. He does not indicate that he knows why he was unable to sleep. He denies anxiety or worry. He denies cough or dyspnea. He is not in pain. He denies fever chills. Objective: Vital Signs Temp Pulse Resp BP Pulse Ox 36.7 C 68 17 108/82 H 94 03/14/18 08:00 03/14/18 08:51 03/14/18 08:00 03/14/18 08:51 03/14/18 08:00 Laboratory Results 03/05/18 06:00 03/05/18 06:00 03/13/18 03/14/18 03/15/18 05:59 05:59 05:59 Intake Total 1436 430 Balance 1436 430 Physical Exam - Physical Exam General Appearance: WD/WN, alert, no apparent distress Respiratory: normal breath sounds, wheezing (Quiet inspiratory right middle lung field), prolonged expiration, No crackles, No rhonchi Abdomen: normal bowel sounds, non-tender, soft, No distended Skin: normal color, warm/dry Neuro/Psych: alert, normal mood/affect, aphasia ICD10 Worksheet Patient Problems: Problems Problem Status Onset Intracranial hemorrhage Acute
[2018-03-14] MEDS ORDERED: CITALOPRAM 20 MG TAB PO SCH (14:16)
--- NOTE | 2018-03-14 15:44 | PDOREHIP ---
Admission [facility] - Admission - 3 Day Assessment Period Admission Date/Day 1: 03/04/18 Day 2: 03/05/18 Day 3: 03/06/18 Discharge [facility] - Discharge - 3 Day Assessment Period 2 Days Prior to Anticipated Discharge Date: 03/12/18 1 Day Prior to Anticipated Discharge Date: 03/13/18 Anticipated Discharge Date: 03/14/18 - Discharge Skin Conditions Unhealed Pressure Ulcer (1 or more/Stage 1 or >)-Discharge: 0. No
[2018-03-14] MEDS: ACETAMINOPHEN 325 MG TAB PO PRN (17:40)
[2018-03-14 18:20] LABS: PLATELET COUNT 211 10^3/uL (150-400)
[2018-03-14] MEDS ORDERED: IOPAMIDOL (ISOVUE 370) 100 ML BTL IV ONE (20:07)
[2018-03-14] MEDS: DOXYCYCLINE HYCLATE 100 MG CAP/TAB PO SCH (22:15)
[2018-03-14] MEDS: LORazepam 0.5 MG TAB PO PRN (22:35)
[2018-03-15 08:11] LABS: PLATELET COUNT 200 10^3/uL (150-400)
[2018-03-15] MEDS: ATORVASTATIN CALCIUM 40 MG TAB PO SCH (08:41)
[2018-03-15] MEDS: DOXYCYCLINE HYCLATE 100 MG CAP/TAB PO SCH (08:42)
[2018-03-15] MEDS: FUROSEMIDE 20 MG TAB PO SCH (08:42)
[2018-03-15] MEDS: CHOLECALCIFEROL VIT D3 1,000 UNITS TAB PO SCH (08:42)
[2018-03-15] MEDS: TIOTROPIUM INHALER 18 MCG/DOSE 5 DOSE/MDI IH SCH (08:44)
[2018-03-15] MEDS: BUDESONIDE/FORMOTEROL 80/4.5 60 PUFFS/MDI IH SCH (08:44)
[2018-03-15] MEDS: METOPROLOL SUCCINATE XR 100 MG TAB PO SCH (08:46)
[2018-03-15] MEDS: LOSARTAN POTASSIUM 25 MG TAB PO SCH (08:47)
[2018-03-15] MEDS ORDERED: CALCIUM CARBONATE 500 MG TAB PO SCH (10:00)
--- NOTE | 2018-03-15 13:49 | GDS ---
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 OTHER DISCHARGE DIAGNOSES: 1. Right lower lobe pulmonary mass. 2. Chronic obstructive pulmonary disease. 3. Hypertension. 4. Adjustment disorder with depressed mood. 5. Subclinical hypothyroidism. CONSULTATIONS: There was a phone consultation with Dr. Giraldo of Pulmonology. PROCEDURES: He had a chest CT. COMPLICATIONS: He had increasing hypoxia. HISTORY AND HOSPITAL COURSE: This patient was hospitalized with right-sided weakness and difficulty speaking. He was diagnosed with a posterior temporoparietal hemorrhagic CVA. He had comorbid severe COPD with a baseline oxygen requirement of 4 L at rest and 6 L with activity. He was medically stabilized and discharged to inpatient rehabilitation. He did well in rehabilitation. His initial functional independence measure on 03/06/2018 was 71, which is consistent with custodial level of function. It increased to 85 as of 03/13/2018, which is consistent with assisted living level of function. He was ambulating well with no device and was made independent on the unit and in his room during the day. He was able to climb and descend 1 flight of stairs with contact guard assist. He needed supervision on curbs and uneven surfaces. He had decreased endurance. He achieved modified independence using an assistive device for dressing, grooming , and hygiene. He required minimal assist for bathing. He appeared to have a visual field cut versus hemineglect, and it was advised that he have a consultation with a neuro-communications scientist after his discharge. He had severe receptive and moderate to severe expressive aphasia. These improved somewhat. He had more difficulty with expressive aphasia than with receptive. He was noted to have 88% consistency for yes's and no's on visually- based tasks. Regarding chronic obstructive pulmonary disease and respiratory status, he was treated with budesonide/formoterol inhaler, tiotropium inhaler, and albuterol as needed, as well as an albuterol/ipratropium nebulizer as needed. He did not use the as-needed medications. Overall, his oxygenation was stable, needing 4 L at rest and 6 L with activity. However, he had a decline in oxygenation and developed general malaise on the day before discharge. Laboratory evaluation revealed normal troponin, slight hyponatremia, an elevated white blood cell count, and an elevated D-dimer. He was sent for chest CT the evening of 2017, which showed no pulmonary embolus. However, there was a right lower lobe mass with a likely postobstructive pneumonia. He returned to the inpatient rehabilitation unit, where treatment of pneumonia was initiated with antibiotics. On the day of discharge, he has fatigue and can only tolerate up to approximately 10 minutes of therapy, and he has increased hypoxia, needing 8 L for ambulation. He was noted to be emotionally labile and tearful at times early on in his admission. He was begun on citalopram for depression versus adjustment disorder with depressed mood, initially at 5 mg, which he tolerated well. It was subsequently titrated to 10 and then 20 mg. Dose was reduced to 10 mg starting 03/15/2018 due to insomnia and malaise. Lorazepam, which had been prescribed prior to his rehabilitation admission, was continued, and used occasionally. Condition and chest CT results were discussed with Dr. Giraldo of Pulmonology, and decision was made to admit Mr. Mcnamara to [facility] with plan for bronchoscopy tomorrow to establish diagnosis and plan further treatment. Diagnosis and plan were discussed in detail with patient's , with the patient present. It was unclear whether he fully comprehended his condition and the plan. CONDITION ON DISCHARGE: Fair. DIET: Regular. ACTIVITY: Ad brinda, though he will require assistance for bathing and assistance at night. DISCHARGE MEDICATIONS: 1. Acetaminophen 650 mg p.o. q.4 hours p.r.n. 2. Albuterol 1-2 puffs q.4 hours p.r.n. 3. Amlodipine 10 mg p.o. daily. 4. Amoxicillin 1000 mg p.o. b.i.d. for 5 days, started on 03/14/2018, with evening dose. 5. Doxycycline 100 mg p.o. b.i.d. for 5 days, beginning 03/14/2018, with evening dose. 6. Atorvastatin 80 mg p.o. daily. 7. Budesonide/formoterol 2 puffs b.i.d. 8. Calcium carbonate 500 mg p.o. daily at 10 a.m. 9. Cholecalciferol 1000 units p.o. daily. 10. Citalopram 10 mg p.o. daily. 11. Furosemide 20 mg p.o. daily. 12. Lorazepam 0.5 mg p.o. daily p.r.n. anxiety. 13. Losartan 25 mg p.o. daily. 14. Metoprolol 100 mg p.o. daily. 15. Senna 1 tab p.o. b.i.d. p.r.n. ISSUES TO BE ADDRESSED AT FOLLOWUP: 1. Right lower lobe lung mass. He will have bronchoscopy in the hospital. 2. Likely postobstructive pneumonia as evidenced by elevated white count, worsening hypoxia with cough, and finding on chest CT; however, serum procalcitonin was negative. Consider repeat serum procalcitonin. White count has gotten higher on the day of discharge than it was on 03/14/2018. Further followup per Pulmonology and possibly Infectious Disease to determine whether antibiotic coverage should be continued, and if so, what might be the appropriate antibiotic. 3. Adjustment disorder with depressed mood versus depression. Advised to continue citalopram. Most likely, his malaise and insomnia were due to lung mass and postobstructive pneumonia. Advise continuing lorazepam on an as- needed basis. 4. Expressive and receptive aphasia. He should continue speech and language pathology. This may present somewhat of a challenge in terms of his understanding of his condition and the plan, and the assistance of speech and language pathology for communication is likely to be quite useful. 5. Hemorrhagic cerebrovascular accident. Imaging was also consistent with amyloid angiopathy. NSAIDs and antithrombotic or anticoagulant medications are relatively contraindicated unless there is a very strong indication. 6. Elevated troponin during his initial hospitalization. It was recommended that he have a cardiac stress test as an outpatient whether to proceed with this will depend on what is planned regarding the lung mass. 7. High-frequency hearing loss. Consider referral to Audiology. Copy requested to: Dr. Vega Maddox [facility] /[id number]/MODL MTDD
[2018-03-15] MEDS: LORazepam 0.5 MG TAB PO PRN (14:54)
[2018-03-15 15:00] VITALS: BP 117/63
== END 2018-03-15 18:19 | disposition short-term general hospital (02) | DRG 56 ==
LOC: BREH 16:09
PROVIDERS: ADMIT Internal Medicine; ATTEND Internal Medicine
PROC: F0636ZZ Communicative/Cognitive Integration Skills Treatment of Neurological System - Whole Body (ICD-10-PCS; principal; 2018-03-04)
PROC: F07M3ZZ Motor Function Treatment of Musculoskeletal System - Whole Body (ICD-10-PCS; principal; 2018-03-04)
PROC: F08Z7ZZ Vocational Activities and Functional Community or Work Reintegration Skills Treatment (ICD-10-PCS; principal; 2018-03-04)
DX: I69.120 Aphasia following nontraumatic intracerebral hemorrhage (principal); J18.9 Pneumonia, unspecified organism; R91.8 Other nonspecific abnormal finding of lung field; E85.4 Organ-limited amyloidosis; I68.0 Cerebral amyloid angiopathy; I10 Essential (primary) hypertension; J44.9 Chronic obstructive pulmonary disease, unspecified; F43.21 Adjustment disorder with depressed mood; E78.5 Hyperlipidemia, unspecified; D69.6 Thrombocytopenia, unspecified; E03.9 Hypothyroidism, unspecified; Z87.891 Personal history of nicotine dependence; Z99.81 Dependence on supplemental oxygen; Z95.3 Presence of xenogenic heart valve; Z85.850 Personal history of malignant neoplasm of thyroid
CPT/HCPCS: 84481-90; 92507-GN; 92522-GN; 92610-GN; 97110-GO; 97112-GP; 97116-GP; 97161-GP; 97165-GO; 97530-GO; 97530-GP; 97535-GO; 99366-GO; G0515-GO; Q9967

== ENCOUNTER 2018-03-15 12:40 | Inpatient (IN) | payer OTHER ==
[2018-03-15] MEDS ORDERED: ONDANSETRON 4 MG/2 ML VIAL IVP PRN (19:41)
[2018-03-15] MEDS ORDERED: ACETAMINOPHEN 325 MG TAB PO PRN (19:41)
[2018-03-15] MEDS ORDERED: ONDANSETRON DISINTEGRATING 4 MG TAB PO PRN (19:41)
[2018-03-15] MEDS ORDERED: LORazepam 0.5 MG TAB PO PRN (20:43)
[2018-03-15] MEDS ORDERED: ALBUTEROL 60 PUFFS/8 GM MDI IH PRN (20:43)
[2018-03-15] MEDS ORDERED: oxyCODONE IR 5 MG TAB PO PRN (20:43)
[2018-03-15] MEDS ORDERED: SENNOSIDES 1 TAB PO PRN (20:43)
[2018-03-15] MEDS: DOXYCYCLINE HYCLATE 100 MG CAP/TAB PO SCH (21:02)
[2018-03-15] MEDS: CEFEPIME HCL 1 GM in STERILE WATER INJ 11.3 ML IV SCH (21:06)
--- NOTE | 2018-03-15 21:36 | GHP ---
[f rep st] HISTORY AND PHYSICAL DATE OF ADMISSION: 03/15/2018 HISTORY OF PRESENT ILLNESS: The patient is a pleasant 72-year-old gentleman with a history of recent intracranial hemorrhage and COPD. He is referred back to [facility] from [facility] inpatient rehab on the [facility] for bronchoscopy evaluation of a right lower lo be mass. He originally presented to the hospital in 03/01/2018 with aphasia. He was found to have a hemorrhag ic stroke in the parietal that was 5 x 3.2 cm with surrounding edema. He was managed by Neurosurgery , Neurology, and Hospital Medicine. He was discharged on the to inpatient rehab. Please see Dr Soila Hoff's discharge summary 02/12/2018 for further details of that hospital stay. The patient had done well in rehab and was progressing and in the last couple of days became short of breath. Additionally, subsequently was noted to have a bit of a leukocytosis. Given his progressiv e shortness of breath, on March 14, he had a CTA of the chest following a positive D-dimer. It showed n o evidence of pulmonary embolism, but it had a 4.3 x 2.2 cm mass between the right main pulmonary art ernie and the right mainstem bronchus. He is referred here for further evaluation. In the interim, he was also noted to have a right lower lobe consolidation since March 01 that was felt to be postobstructive. When I speak to the patient, he is comfortable and breathing well. He is not having fever, chills. His family notes some anxiety around his current situation. He is scheduled for biopsy tomorrow. REVIEW OF SYSTEMS: Complete 10-point review of systems conducted. Negative except as noted in the H istory of Present Illness. PAST MEDICAL HISTORY: 1. COPD with 4-6 L oxygen requirement. 2. Recent intracranial hemorrhage. 3. Right lower lobe pulmonary mass. 4. Postobstructive pneumonia. 5. Adjustment disorder with depressed mood. 6. Hypertension. 7. Subclinical hypothyroidism. 8. Thoracic aortic and abdominal aortic stent placements. ALLERGIES: No known drug allergies. HOME MEDICATIONS: Oxycodone, amlodipine, tiotropium, senna, Toprol-XL 100, losartan, lorazepam, furo semide, citalopram, vitamin D3, calcium carbonate, budesonide, formoterol, atorvastatin, albuterol an d acetaminophen. He was also recently started on amoxicillin and doxycycline. SOCIAL HISTORY: [facility]: He has smoked in the past. 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 He lives inside [facility]. Quit several years ago. Does not drink alcohol. FAMILY HISTORY: Reviewed and unremarkable. PHYSICAL EXAMINATION: VITAL SIGNS: Temp 36.4, blood pressure 124/77, pulse 66, breathing 20 times a minute, 91% on 6 L. GENERAL: No acute distress. Sclerae anicteric. Oropharynx clear. Mucous mem branes moist. NECK: Supple. No lymphadenopathy or JVD. LUNGS: Crackles in the right base, otherw ise clear to auscultation with good air movement. No prolonged expiratory phase. HEART: S1, S2. N ot tachycardic. ABDOMEN: Soft, nontender, nondistended. LOWER EXTREMITIES: Without edema. Calves nontender. SKIN: Without rash. NEUROLOGIC: Noted for slow speaking, but otherwise relatively nor mal. LABORATORY: Sodium 133, potassium 4.8, chloride 95, bicarb 28, BUN 23, creatinine 0.8, glucose 67. His D-dimer was 3 yesterday. White count 13, up from 5 a few days ago. Hematocrit 47, platelets of 200,000. CTA reviewed by me shows right lower lobe mass and postobstructive pneumonia. I discussed the case w ith Dr. Brent Earl and Dr. Jad Giraldo. ASSESSMENT/PLAN: 72-year-old gentle with mass and concern for postobstructive pneumonia: 1. Postobstructive pneumonia. The patient was started on amoxicillin and doxycycline. I think he n eeds to be covered for nosocomial organisms. Started cefepime and doxycycline. Anaerobic coverage c an be considered depending on findings of the bronchoscopy. 2. Mass. The patient is written for bronchoscopy in the morning. I have made n.p.o. past midnight and held DVT prophylaxis. 3. Hyponatremia. This is mild. Will follow. 4. Chronic obstructive pulmonary disease. Continue his medicines. 5. Prophylaxis. He is a candidate for pharmacologic DVT prophylaxis but has contraindications in th e setting of recent intracranial bleed. /[id number]/MODL
[2018-03-15] MEDS: BUDESONIDE/FORMOTEROL 80/4.5 60 PUFFS/MDI IH SCH (21:54)
--- NOTE | 2018-03-15 23:34 | PDMN ---
Medical Necessity Medical necessity: C/M review: est. > 2 MN LOS for eval and TX of acute and persistent right lower lobe pulmonary mass, postobstructive pneumonia, shortness of breath, hyponatremia requiring planned 03/16/2018 bronchonscopy ongoing IV Cefepime, oral Doxyclycine, IV fluids, pulse oximetry, supplemental O2, acute inpt PT, comorbid COPD with 4-6L O2 requirement, recent intracranial hemorrhage, patient referred back from [facility] Inpatient Rehab, history of adjustment disorder with depressed mood, hypertension, subclinical hypothyroidism, thoracic aortic and abdominal stent placements per H/P.
[2018-03-16] MEDS: NS 1,000 ML IV SCH ×3 (04:21→22:53)
[2018-03-16 05:01] LABS: PLATELET COUNT 200 10^3/uL (150-400)
[2018-03-16] MEDS: CEFEPIME HCL 1 GM in STERILE WATER INJ 11.3 ML IV SCH ×3 (05:04→20:59)
[2018-03-16 05:08] LABS: INR 1.05 (0.83-1.16); PROTIME(PATIENT) 13.9 SEC (12.0-15.0)
[2018-03-16] MEDS: DOXYCYCLINE HYCLATE 100 MG CAP/TAB PO SCH ×2 (08:18→20:32)
[2018-03-16] MEDS: METOPROLOL SUCCINATE XR 100 MG TAB PO SCH (08:19)
[2018-03-16] MEDS: TIOTROPIUM INHALER 18 MCG/DOSE 5 DOSE/MDI IH SCH (09:55)
[2018-03-16] MEDS: BUDESONIDE/FORMOTEROL 80/4.5 60 PUFFS/MDI IH SCH ×2 (09:55→20:20)
--- NOTE | 2018-03-16 10:56 | PDPROPOC ---
Sedation Plan of Care Sedation Plan of Care: vital signs stable, mental status noted, patient educated of risks, benefits, alternatives, patient can tolerate sedation ASA Classification: ASA 2 Planned drugs: fentanyl, midazolam Mallampati Score: Class 1 Mallampati Reference Image: Patient passed 3-3-2 rule?: Yes
[2018-03-16] MEDS ORDERED: ALBUTEROL 3 ML DEYVIAL ONE (11:07)
[2018-03-16] MEDS ORDERED: LIDOCAINE 2% JELLY 5 ML TUBE ONE (11:08)
[2018-03-16] MEDS ORDERED: LIDOCAINE HCL 4% TOPICAL SOLN 50ML ONE (11:08)
[2018-03-16] MEDS ORDERED: LIDOCAINE 1% 300 MG/30 ML SDV ONE (11:08)
--- NOTE | 2018-03-16 11:30 | HOSPPROG ---
Hospitalist Progress Note Assessment/Plan: # R pulm mass - plan for bronch with biopsy today # R post-obstructive pna - cont cefepime/doxy for now, follow bronch cultures - white count normalized # recent ICH with aphasia - was at rehab - likely d/t cerebral amyloid angiopathy # htn - cont metop, losartan and norvasc # HLD - statin # indet trop - no further w/u now (poor candidate for cath/stent given recent ICH) - cont metop and statin # COPD/chronic resp failure on 5-6L O2 baseline - no exacerbation # hypoNa - recheck tomorrow # dvt ppx - no pharmacologic given ICH, SCDs Subjective: discussed with patient and hif ; he expresses anxiety of the bronch Objective: Vital Signs Temp Pulse Resp BP Pulse Ox 36.6 C 58 L 17 130/72 H 94 03/16/18 11:12 03/16/18 11:12 03/16/18 11:12 03/16/18 11:12 03/16/18 11:12 Laboratory Results 03/16/18 04:25 03/16/18 04:25 03/15/18 03/16/18 03/17/18 05:59 05:59 05:59 Intake Total 86 Balance 86 PT 13.9 SEC (12.0-15.0) 03/16/18 04:25 INR 1.05 (0.83-1.16) 03/16/18 04:25 chart reviewed CTH reviewed CTA reviewed - Physical Exam Constitutional: no apparent distress, appears nourished, other (expressive aphasia) Cardiovascular: regular rate and rhythym, no murmur, rub, or gallop Respiratory: no rales or rhonchi, clear to auscultation, No expiratory wheeze, No inspiratory crackles, No bronchial breath sounds Gastrointestinal: soft, non-tender abdomen, no palpable masses, No guarding, No rebound, No distension ICD10 Worksheet Patient Problems: Problems Problem Status Onset Intracranial hemorrhage Acute
[2018-03-16] MEDS ORDERED: ALBUTEROL 3 ML DEYVIAL IH ONE (11:40)
[2018-03-16] MEDS ORDERED: MIDAZOLAM 2 MG/2 ML VIAL ONE (11:40)
[2018-03-16] MEDS ORDERED: fentaNYL 100 MCG/2 ML INJ ONE (11:41)
[2018-03-16] MEDS ORDERED: fentaNYL 100 MCG/2 ML INJ IVP ONE (12:00)
[2018-03-16] MEDS ORDERED: MIDAZOLAM 2 MG/2 ML VIAL IVP ONE (12:00)
[2018-03-16] MEDS ORDERED: LIDOCAINE HCL 4% TOPICAL SOLN 50ML MM ONE (12:00)
[2018-03-16] MEDS ORDERED: LIDOCAINE 1% 300 MG/30 ML SDV MISC ONE (12:00)
[2018-03-16] MEDS ORDERED: LIDOCAINE 2% JELLY 5 ML TUBE TP ONE (12:00)
--- NOTE | 2018-03-16 14:24 | GPN ---
[f rep st] PROCEDURE NOTE REASON FOR BRONCHOSCOPY: Right lower lobe mass with possible postobstructive pneumonia. DESCRIPTION OF PROCEDURE: The procedure was done in the intensive care unit. Informed consent was o btained over the phone from the patient's . Appropriate time-out was performed. N95 masks were worn. Topical anesthesia included approximately 25 mL of 1% lidocaine to the posterior oropharynx, v ocal cords, and tracheobronchial tree. Conscious sedation included 5 mg of Versed and 125 mcg of fentanyl. The fiberoptic bronchoscope was passed via a bite block orally into the larynx. The vocal cords were identified. They moved normally with cough and respiration. The bronchoscope was advanced through the cords and into the lower tracheobronchial tree bilaterally. All areas were observed to at least the first subsegmental level. Anatomy was normal bilaterally. Interestingly, despite the findings o n the CAT scan, which indicated narrowing and obstruction at the level of the bronchus intermedius an d right middle lobe, there was no evidence of significant obstruction. There may be mild narrowing p resent in these locations. However, this is not impressive. Mild erythema was perhaps noted; howeve r, this is a soft call. The mucosa in this area appeared normal. There were no findings suggesting endobronchial malignancy. The bronchi in the right lower lobe and in the right middle lobe were norm al. Secretions were modest at best. They were nonpurulent. Washings and lavage samples were taken from the bronchus intermedius, right lower lobe, and right mid dle lobe. An endobronchial brush biopsy sample was obtained from this same area. A transbronchial n eedle aspirate was taken from the bronchus intermedius and directed anterolaterally into the patient' s lesion, as seen on CT scan. Slides were made from this aspirate material and placed in CytoLyt. T he needle catheter was flushed with CytoLyt and added to the brush biopsy sample. The patient tolerated the procedure well. Vital signs and oxygen saturations on supplemental oxygen were normal throughout the procedure. IMPRESSION: 1. No evidence of significant obstruction or endobronchial malignancy related to the bronchus interm edius, right middle lobe, or right lower lobe. 2. No evidence of purulent secretions, mucus or mucus plugging consistent with pneumonia. 3. No evidence of obstruction leading to a postobstructive pneumonia. Appropriate samples were sent to the laboratory. /[id number]/MODL
[2018-03-16] MEDS: CALCIUM CARBONATE 500 MG TAB PO SCH (14:44)
[2018-03-16] MEDS: CITALOPRAM 20 MG TAB PO SCH (14:44)
[2018-03-16] MEDS: ATORVASTATIN CALCIUM 40 MG TAB PO SCH (14:44)
[2018-03-16] MEDS: CHOLECALCIFEROL VIT D3 1,000 UNITS TAB PO SCH (14:44)
[2018-03-16] MEDS: LOSARTAN POTASSIUM 25 MG TAB PO SCH ×2 (14:45→15:08)
--- NOTE | 2018-03-16 16:00 | GCON ---
[f rep st] CONSULTATION PULMONARY CONSULTATION DATE OF CONSULTATION: 03/16/2018 REASON FOR CONSULTATION: Right lower lobe mass suspicious for malignancy in a previous smoker. HISTORY: The patient is a 72-year-old gentleman. He presented with an acute stroke secondary to int racranial hemorrhage to [facility] approximately 2 weeks ago. Following his inpatien t stay here, he was sent to inpatient rehabilitation. He was to be discharged from there yesterday. However, he began having some pulmonary issues associated with increased hypoxemia and cough. A CT angiogram was done which was unremarkable for pulmonary embolic disease; however, did show a right lo wer lobe lesion with partial occlusion of the bronchus intermedius extending into the right middle lo be. A postobstructive infiltrate, possibly pneumonia, was present. He was thus transferred back to [facility] secondary to declining pulmonary status and the need for evaluation of his possible lung cancer. The patient did smoke cigarettes in the past. He is unable to give a clear history regarding this. He probably started smoking in his 20s and discontinued smoking previously. He cannot say exactly wh en. He does recognize a diagnosis of COPD. He denies using oxygen at home, but has been on inhalers in the past. CT scan also shows significant emphysema. Prior to admission, by report he lived in a multistory house in the [facility]. Because of the residual deficits from his stroke, which include receptive and expressive aphasias as well as some re sidual weakness for which he needs a walker, he cannot return home. Placement with his daughter in [place] was considered; however, it seems more reasonable that he will likely need nursing home faci lity on discharge, at least for a while. PAST MEDICAL HISTORY: Remarkable for the recent intracranial hemorrhage. This was in the left parie myron lobe. Some other bilateral abnormalities were found, suspicious for amyloid. He was seen both b y Neurosurgery and Neurology. The bleed was felt to be secondary to amyloid. Anti-platelet and anti coagulation was felt to be contraindicated going forward. Other medical problems include his COPD/em physema, history of systemic hypertension and depression, hypothyroidism, and peripheral vascular dis ease with abdominal aortic stenting in the past. DRUG ALLERGIES: No known drug allergies. SOCIAL HISTORY: He previously worked in the [employer] business. Alcohol is denied. He has a daug hter. He is and was living with his . REVIEW OF SYSTEMS: Negative except as outlined above per the chart. Unobtainable from the patient. FAMILY HISTORY: Reviewed, noncontributory. PHYSICAL EXAMINATION: GENERAL: Reveals a pleasant gentleman who has an expressive aphasia, but does okay with yes or no answers for the most part. VITAL SIGNS: Blood pressure is 130/70, heart rate 6 0 and regular. On 4 L, saturations are 94%. He is afebrile. HEENT: Unremarkable for lymphadenopat hy or thyromegaly. There is no jugular venous distention. Pupils appear equal. LUNGS: There is a pleural rub at the lower right base. The lungs are otherwise clear with diminished breath sounds. H EART: Regular in rate and rhythm. A soft systolic murmur is present. No gallop. ABDOMEN: Soft, n ontender. Bowel sounds present. EXTREMITIES: Unremarkable for significant edema. NEUROLOGIC: Nydia ssly nonfocal from a motor standpoint. He does have significant moderate expressive and possibly rec eptive aphasia. LABORATORY DATA: White blood cell count is 9400, hematocrit 47. Platelets are normal. PT and PTT a re normal. Sodium is 131, potassium 4.8. BUN and creatinine are within normal limits, glucose 83. ASSESSMENT: 1. Right lower lobe lesion suspicious for primary lung cancer. Bronchoscopy will be done. 2. Postobstructive pneumonia secondary to right lower lobe lesion. He has been started on broad-spe ctrum antibiotics. His pneumonia is associated with some pleural irritation with a definite pleural rub. However, he has no pain or pleurisy. 3. Chronic obstructive pulmonary disease/emphysema. This would appear to be at least moderate. 4. Recent hemorrhagic stroke. As outlined in the HPI. 5. History of other medical problems as outlined above. PLAN AND RECOMMENDATIONS: Patient will be kept n.p.o. for now. Bronchoscopy will be done today. Wa shings, brushings, and possibly biopsies if indicated will be obtained. Cultures will be obtained as well secondary to the likely postobstructive pneumonia. Antibiotics will be continued. Bronchopulm onary therapies and medications will be continued following the bronchoscopy. Further plans and recommendations will be made based on his progress over the next 12-24 hours. /[id number]/MODL
--- NOTE | 2018-03-16 16:01 | ASMTCMCOM ---
CM Note CM Note Notes: Pt was admitted from [facility] for a bronchoscopy evaluation of a R lower lobe mass and possible PNA. He was discharged 03/04/18 to IR after hospitalization for a CVA and doing well until he became SOB. He has a hx of COPD, CVA, PNA, HTN and adjustment d/o with depressed mood. [facility] D/C needs not known at this time but anticipate he may d/c back to IR. CM will follow for any d/c needs. Date Signed: 03/16/2018 04:00 PM Electronically Signed By:ABIGAIL Murphy
[2018-03-17] MEDS: CEFEPIME HCL 1 GM in STERILE WATER INJ 11.3 ML IV SCH (05:09)
[2018-03-17] MEDS: NS 1,000 ML IV SCH (08:38)
[2018-03-17] MEDS: CITALOPRAM 20 MG TAB PO SCH (09:15)
[2018-03-17] MEDS: CALCIUM CARBONATE 500 MG TAB PO SCH (09:15)
[2018-03-17] MEDS: METOPROLOL SUCCINATE XR 100 MG TAB PO SCH (09:15)
[2018-03-17] MEDS: DOXYCYCLINE HYCLATE 100 MG CAP/TAB PO SCH ×2 (09:15→22:11)
[2018-03-17] MEDS: ATORVASTATIN CALCIUM 40 MG TAB PO SCH (09:15)
[2018-03-17] MEDS: LOSARTAN POTASSIUM 25 MG TAB PO SCH (09:15)
[2018-03-17] MEDS: CHOLECALCIFEROL VIT D3 1,000 UNITS TAB PO SCH (09:15)
[2018-03-17] MEDS: BUDESONIDE/FORMOTEROL 80/4.5 60 PUFFS/MDI IH SCH ×2 (10:33→22:12)
[2018-03-17] MEDS: TIOTROPIUM INHALER 18 MCG/DOSE 5 DOSE/MDI IH SCH (10:36)
--- NOTE | 2018-03-17 12:55 | HOSPPROG ---
Hospitalist Progress Note Assessment/Plan: # R pulm mass - s/p bronch yesterday # pna, small associated pleural effusion - no obstruction on bronch per Dr Giraldo - GNR LF on bronch culture - will change to rocephin/doxy # recent ICH with aphasia - was at rehab - likely d/t cerebral amyloid angiopathy # hx aortic aneurysm s/p graft # htn - cont metop, losartan and norvasc # HLD - statin # indet trop - no further w/u now (poor candidate for cath/stent given recent ICH) - cont metop and statin # COPD/chronic resp failure on 5-6L O2 baseline - no exacerbation # hypoNa - recheck tomorrow # dvt ppx - no pharmacologic given ICH, SCDs Subjective: feels well; aphasia limits interview; discussed with Dr Giraldo Objective: Vital Signs Temp Pulse Resp BP Pulse Ox 36.5 C 63 18 92/67 L 92 03/17/18 11:29 03/17/18 11:29 03/17/18 11:29 03/17/18 11:29 03/17/18 11:29 Microbiology 03/16/18 12:00 Gram Stain - Final Lung Right Lower Lobe - Aspirate 03/16/18 12:00 Mycobacterial Smear (ELDER) - Final Lung Right Lower Lobe - Aspirate Laboratory Results 03/16/18 04:25 03/17/18 05:15 03/16/18 03/17/18 03/18/18 05:59 05:59 05:59 Intake Total 86 3281 Balance 86 3281 PT 13.9 SEC (12.0-15.0) 03/16/18 04:25 INR 1.05 (0.83-1.16) 03/16/18 04:25 CXR personally reviewed - Physical Exam Constitutional: no apparent distress, appears nourished Cardiovascular: regular rate and rhythym, no murmur, rub, or gallop Respiratory: no respiratory distress, No expiratory wheeze, No inspiratory crackles, No bronchial breath sounds Gastrointestinal: soft, non-tender abdomen, no palpable masses, No guarding, No rebound, No distension ICD10 Worksheet Patient Problems: Problems Problem Status Onset Intracranial hemorrhage Acute
--- NOTE | 2018-03-17 19:23 | SOAPPROG ---
SOAP Progress Note Assessment/Plan: Assessment/Plan: Lung mass. Seen on CT scan, with a suggestion of bronchial obstruction at the level of the bronchus intermedius and right middle lobe. However, on bronchoscopy there is no evidence of significant obstruction or endobronchial abnormality. Samples were obtained and a wearing needle biopsy done. We are awaiting results, likely not back until Sunday. I will follow up with the patient and his by phone when results are back and make further recommendations and plans at that time based on the results. Pneumonia. He is growing Klebsiella. This is not a postobstructive pneumonia as there was no obstruction. I am more concerned about the possibility of aspiration pneumonia. He seems to be doing well on the current antibiotics. Sensitivities are being awaited. He should be able to go home on a single agent. Hopefully we will have the sensitivities back tomorrow. I would recommend a 10 - 14 day course of treatment. Recent intracerebral hemorrhage/stroke, with improving neurologic deficits. Disposition: I will leave this to others. He will either go to his daughter's house or to a SNF. Subjective: Doing well, no complaints. Denies significant cough or mucus. No pleuritic chest pain. Objective: Vital Signs Temp Pulse Resp BP Pulse Ox 36.5 C 59 L 18 125/75 H 95 03/17/18 15:26 03/17/18 15:26 03/17/18 15:26 03/17/18 15:26 03/17/18 15:26 Microbiology 03/16/18 12:00 Gram Stain - Final Lung Right Lower Lobe - Aspirate 03/16/18 12:00 Mycobacterial Smear (ELDER) - Final Lung Right Lower Lobe - Aspirate Laboratory Results 03/16/18 04:25 03/17/18 05:15 03/16/18 03/17/18 03/18/18 05:59 05:59 05:59 Intake Total 86 3281 2042 Balance 86 3281 2042 PT 13.9 SEC (12.0-15.0) 03/16/18 04:25 INR 1.05 (0.83-1.16) 03/16/18 04:25 Klebsiella from bronch. Sensitivities pending. Chest x-ray: Right-sided lower zone infiltrates and area of pleural thickening/ fluid present. Physical Exam - Physical Exam General Appearance: alert, no apparent distress EENT: other (Nasal cannula in place at 4 L) Neck: normal inspection Respiratory: decreased breath sounds (Bilaterally), rales (Few present at right base), pleural rub (Still present but decreased at lateral right base), No rhonchi Cardiac/Chest: regular rate, rhythm Abdomen: normal bowel sounds, non-tender, soft Skin: normal color, warm/dry Extremities: No pedal edema Neuro/Psych: no motor/sensory deficits (Moves all extremities equally), cognition abnormalities (Receptive and expressive aphasia, seem to be somewhat better?) ICD10 Worksheet Patient Problems: Problems Problem Status Onset Intracranial hemorrhage Acute
[2018-03-18] MEDS: TIOTROPIUM INHALER 18 MCG/DOSE 5 DOSE/MDI IH SCH (08:48)
[2018-03-18] MEDS: BUDESONIDE/FORMOTEROL 80/4.5 60 PUFFS/MDI IH SCH ×2 (08:48→20:09)
[2018-03-18] MEDS: CITALOPRAM 20 MG TAB PO SCH (09:17)
[2018-03-18] MEDS: ATORVASTATIN CALCIUM 40 MG TAB PO SCH (09:17)
[2018-03-18] MEDS: DOXYCYCLINE HYCLATE 100 MG CAP/TAB PO SCH ×2 (09:17→21:05)
[2018-03-18] MEDS: CALCIUM CARBONATE 500 MG TAB PO SCH (09:18)
[2018-03-18] MEDS: LOSARTAN POTASSIUM 25 MG TAB PO SCH (09:18)
[2018-03-18] MEDS: METOPROLOL SUCCINATE XR 100 MG TAB PO SCH (09:18)
[2018-03-18] MEDS: CHOLECALCIFEROL VIT D3 1,000 UNITS TAB PO SCH (09:18)
--- NOTE | 2018-03-18 10:39 | HOSPPROG ---
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 # hx aortic aneurysm s/p graft # htn - cont metop, losartan and norvasc # HLD - statin # indet trop - no further w/u now (poor candidate for cath/stent given recent ICH) - cont metop and statin # COPD/chronic resp failure on 5-6L O2 baseline - no exacerbation # hypoNa - stabilized # dvt ppx - no pharmacologic given ICH, SCDs # dispo - family now amenable to SNF; likely dc tomorrow Subjective: seen with RN and daughter Ruthie; patient very sad about having to go to a SNF; otherwise breathing is at his baseline Objective: Vital Signs Temp Pulse Resp BP Pulse Ox 36.4 C 73 20 139/87 H 90 L 03/18/18 08:30 03/18/18 08:53 03/18/18 08:53 03/18/18 08:30 03/18/18 08:53 Microbiology 03/16/18 12:00 Gram Stain - Final Lung Right Lower Lobe - Aspirate 03/16/18 12:00 Mycobacterial Smear (ELDER) - Final Lung Right Lower Lobe - Aspirate Laboratory Results 03/16/18 04:25 03/17/18 05:15 03/17/18 03/18/18 03/19/18 05:59 05:59 05:59 Intake Total 3281 2392 Balance 3281 2392 PT 13.9 SEC (12.0-15.0) 03/16/18 04:25 INR 1.05 (0.83-1.16) 03/16/18 04:25 - Time Spent With Patient Time Spent with Patient: greater than 25 minutes Time Spent with Patient: Greater than 25 minutes spent on this patients care, greater than 50% of time spent counseling, educating, and coordinating care regarding the above mentioned plan. - Physical Exam Constitutional: no apparent distress, appears nourished Respiratory: no respiratory distress ICD10 Worksheet Patient Problems: Problems Problem Status Onset Intracranial hemorrhage Acute
--- NOTE | 2018-03-18 11:06 | ASMTCMCOM ---
CM Note CM Note Notes: Chart reviewed. Discussed with Dr. Dickens, Family now agreeable to SNF at [facility]. Referral via allscripts. Pending review and acceptance. CM to follow. Plan: To SNF Date Signed: 03/18/2018 11:06 AM Electronically Signed By:Neris Rinaldi RN
[2018-03-19] MEDS: BUDESONIDE/FORMOTEROL 80/4.5 60 PUFFS/MDI IH SCH (08:27)
[2018-03-19] MEDS: TIOTROPIUM INHALER 18 MCG/DOSE 5 DOSE/MDI IH SCH (08:27)
[2018-03-19] MEDS: DOXYCYCLINE HYCLATE 100 MG CAP/TAB PO SCH (09:45)
[2018-03-19] MEDS: CALCIUM CARBONATE 500 MG TAB PO SCH (09:45)
[2018-03-19] MEDS: CITALOPRAM 20 MG TAB PO SCH (09:46)
[2018-03-19] MEDS: CHOLECALCIFEROL VIT D3 1,000 UNITS TAB PO SCH (09:46)
[2018-03-19] MEDS: ATORVASTATIN CALCIUM 40 MG TAB PO SCH (09:48)
[2018-03-19] MEDS: METOPROLOL SUCCINATE XR 100 MG TAB PO SCH (09:49)
[2018-03-19] MEDS: LOSARTAN POTASSIUM 25 MG TAB PO SCH (09:50)
[2018-03-19 12:05] VITALS: BP 114/77
--- NOTE | 2018-03-19 12:30 | GDS ---
[f rep st] DISCHARGE SUMMARY ALL DIAGNOSES: 1. Right lower lobe pneumonia with small associated pleural effusion. 2. Right-sided pulmonary mass. 3. Recent intracerebral hemorrhage with ongoing aphasia. 4. Hypertension. 5. History of an aortic aneurysm status post graft. 6. Hyperlipidemia. 7. Indeterminate troponin. 8. Chronic obstructive pulmonary disease with chronic respiratory failure. 9. Hyponatremia. STUDIES PENDING AT TIME OF DISCHARGE: Pathology from transbronchial biopsy. PROCEDURES: Bronchoscopy with biopsy of mass on 03/16/[address] Giraldo. HOSPITAL COURSE: A 72-year-old man with recent complicated past medical history. He initially prese nted to this hospital on March 01 with a new intracranial hemorrhage. He was discharged at that po int, to inpatient rehab, with significant aphasia. He had been working at rehab from 03/04 to 03/15, at which time, CT angiogram was ordered for worsening dyspnea. At that point, pneumonia was seen on the CT scan as well as a pulmonary mass. He was readmitted to [facility] for additional work up. He received a bronchoscopy with biopsy of the mass. This is pending. Dr. Giraldo noted that there wer e no obstructive lesions to account for postobstructive pneumonia. Thus, he was treated for communit y-acquired pneumonia. He has improved with this treatment. He will get an additional 7 days of anti biotics for a total of a 10 day course. On discharge, he has significant expressive aphasia. He has been working with Speech Language Pathterrence tenorio. He should continue doing this at a alf facility. Ultimate plan will be for him to move home with his daughter after he has completed appropriate rehab. FOLLOWUP: 1. Dr. Ford, given his recent intra cerebral hemorrhage, in about [address] Giraldo to follow up on pathology of his mass and come up with additional plans as needed, base d on pathology. BILLING: I spent more than 30 minutes on the day of discharge coordinating care. /[id number]/MODL
--- NOTE | 2018-03-19 13:07 | PDIAF ---
- Diagnosis Diagnosis: pulmonary mass Code Status: Full Code - Medication Management Discharge Medications: Medications to Continue on Transfer Calcium Carbonate [Oyster Shell Calcium 500 mg (*)] 500 mg PO DAILY 03/01/18 [ Last Taken 03/15/18 10:28 500 MG] Cholecalciferol Vit D3 [Vitamin D3 (*)] 1,000 units PO DAILY 03/01/18 [Last Taken 03/15/18 08:42 1000 UNITS] Acetaminophen [Tylenol 325mg (*)] 650 mg PO Q4HRS PRN tab 03/14/18 [Last Taken 03/14/18 17:40 650 mg] Albuterol [Proventil Inhaler HFA (*)] 1 - 2 puffs IH Q4H PRN #1 mdi 03/14/18 [ Last Taken 03/15/18 08:46 10 MG] Atorvastatin Calcium 80 mg PO DAILY #30 tablet 03/14/18 [Last Taken 03/15/18 08: 41 80 MG] Budesonide/Formoterol Fumarate [Symbicort 80-4.5 Mcg Inhaler] 2 puffs IH BID #1 hfa.aer.ad 03/14/18 [Last Taken 03/15/18 08:44 2 PUFFS] Citalopram [CeleXA 20 MG] 10 mg PO DAILY #30 tab 03/14/18 [Last Taken 03/15/18 08:42 10 mg] Furosemide [Lasix 20 MG (*)] 20 mg PO DAILY #30 tab 03/14/18 [Last Taken 08:42 20 MG] LORazepam [Ativan (*)] 0.5 mg PO DAILY PRN #30 tab 03/14/18 [Last Taken 14:54 0.5 Mg] Losartan Potassium [Cozaar 25 mg (*)] 25 mg PO DAILY #30 tab 03/14/18 [Last Taken 03/15/18 08:47 25 MG] Metoprolol Succinate Xr [Toprol Xl 100 mg (*)] 100 mg PO DAILY #30 tab 03/14/18 [Last Taken 03/15/18 08:46 100 MG] Sennosides [Senokot] 1 tab PO BID PRN tab 03/14/18 [Last Taken 03/11/18 15:36 1 TAB] Tiotropium Inhaler [Spiriva Handihaler] 18 mcg IH DAILY #1 mdi 03/14/18 [Last Taken 03/15/18 08:44 18 mcg] amLODIPine BESYLATE [Norvasc 10 mg (*)] 10 mg PO DAILY #30 tab 03/14/18 [Last Taken 03/15/18 08:46 10 MG] oxyCODONE IR [Oxycodone Ir (*)] 5 mg PO Q6 PRN #14 tab 03/14/18 [Last Taken 12/30 13:04 5 MG] levOFLOXACIN [levAQUIN (*)] 750 mg PO DAILY #7 tab 03/19/18 [Last Taken Unknown] Care Home Antibiotics: levaquin 750mg PO daily for 7 days Discharge Medications: Refer to the Discharge Home Medication list for PRN reason. - Orders Services needed: Registered Nurse, Certified Tank [employer], Physical Therapy, Occupational Therapy, Speech Language Pathologist Diet Recommendation: no restrictions on diet - Follow Up Care Current Providers and Referrals: Alexander Ford MD [Medical Doctor] - (2 weeks) Patient,NotPresent [Primary Care Provider] - Jad Giraldo MD [Medical Doctor] - (call his offince in 1 week if you have not heard from him)
== END 2018-03-19 14:15 | DRG 167 ==
LOC: F1N 18:30
PROVIDERS: ADMIT Internal Medicine; ATTEND Internal Medicine
DX: J15.0 Pneumonia due to Klebsiella pneumoniae (principal); J90 Pleural effusion, not elsewhere classified; J96.11 Chronic respiratory failure with hypoxia; E87.1 Hypo-osmolality and hyponatremia; R91.8 Other nonspecific abnormal finding of lung field; I69.120 Aphasia following nontraumatic intracerebral hemorrhage; I10 Essential (primary) hypertension; J44.9 Chronic obstructive pulmonary disease, unspecified; E78.5 Hyperlipidemia, unspecified
CPT/HCPCS: 97116-GP; 97161-GP; 97530-GP; G8978-GP-CK; G8979-GP-CI; G8980-GP-CJ; J0171; J0692; J0696; J2250; J2405; J3010; J7613

== ENCOUNTER → 2018-04-26 | Outpatient (CLI) | payer OTHER | LOC: FIMAGING 15:01 → EDSTATUS 15:03 | PROVIDERS: ATTEND Internal Medicine Pulmonary Disease | DX: Z09 Encounter for follow-up examination after completed treatment for conditions other than malignant neoplasm (principal); J98.11 Atelectasis; J90 Pleural effusion, not elsewhere classified; R91.8 Other nonspecific abnormal finding of lung field ==